=== PATIENT | female | born 1970 | race Caucasian/White ===

== ENCOUNTER 2019-04-09 03:31 | Emergency (ER) | payer OTHER ==
--- NOTE | 2019-04-09 04:15 | XRay Report ---
CHEST 2 VIEWS INDICATION / CLINICAL INFORMATION: DARCY. COMPARISON: None available. FINDINGS: SUPPORT DEVICES: None. HEART / MEDIASTINUM: No significant abnormality. LUNGS / PLEURA: No significant pulmonary or pleural abnormality. No pneumothorax. ADDITIONAL FINDINGS: There is a pectus excavatum deformity. IMPRESSION: 1. No acute findings. Signer Name: Hugo Zarate MD Signed: 04/09/2019 4:11 AM Workstation Name: [id number]
[2019-04-09 04:49] VITALS: BP 124/75
--- NOTE | 2019-04-09 05:02 | Emergency Department Report ---
ED Shortness of Breath HPI - General Chief Complaint: Dyspnea/Respdistress Stated Complaint: ASTHMA Time Seen by Provider: 04/09/19 04:56 Source: patient Mode of arrival: Ambulatory Limitations: No Limitations - History of Present Illness Initial Comments: 48-year-old female presents to ED with cough and shortness of breath. Patient reports history of asthma when she is a child. Patient states over the last month she has been experiencing productive cough, shortness of breath, wheezing, chest pain with cough and inspiration. Patient denies fever. 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 Patient states she was given a prescription of prednisone, antibiotics, allergy medicine, and albuterol last month. Patient states she has a follow-up appointment with her doctor in 2 days. Patient denies leg pain or swelling. MD Complaint: shortness of breath -: month(s) (1) Severity: moderate Consistency: intermittent Improves With: bronchodilators Worsens With: coughing Known History Of: asthma Associated Symptoms: chest pain, pain with inspiration, cough, sputum production - Related Data Previous Rx's Medication Instructions Recorded Last Taken Type Albuterol Sulfate [Proventil Hfa] 2 puff IH Q4HR PRN #1 hfa.aer.ad 04/09/19 Unknown Rx Benzonatate [Tessalon Perles] 100 mg PO Q8HR PRN #20 capsule 04/09/19 Unknown Rx Naproxen [Naprosyn] 500 mg PO BID #20 tablet 04/09/19 Unknown Rx predniSONE [Deltasone] 50 mg PO QDAY #5 tab 04/09/19 Unknown Rx Allergies Allergy/AdvReac Type Severity Reaction Status Date / Time iodine Allergy Anaphylaxis Verified 04/09/19 03:44 Penicillins Allergy Anaphylaxis Verified 04/09/19 03:42 Sulfa (Sulfonamide Allergy Anaphylaxis Verified 04/09/19 03:44 Antibiotics) ED Review of Systems ROS: Stated complaint: ASTHMA Other details as noted in HPI Comment: All other systems reviewed and negative Constitutional: denies: chills, fever Respiratory: cough, shortness of breath, wheezing Cardiovascular: chest pain Musculoskeletal: other (denies leg pain or swelling) ED Past Medical Hx - Past Medical History Previous Medical History?: Yes Hx Hypertension: Yes Hx Asthma: Yes - Surgical History Past Surgical History?: Yes Hx Appendectomy: Yes Additional Surgical History: B/L Hand - Social History Smoking Status: Former Smoker Substance Use Type: None - Medications Home Medications: Home Medications Medication Instructions Recorded Confirmed Last Taken Type Albuterol Sulfate [Proventil Hfa] 2 puff IH Q4HR PRN #1 hfa.aer.ad 04/09/19 Unknown Rx Benzonatate [Tessalon Perles] 100 mg PO Q8HR PRN #20 capsule 04/09/19 Unknown Rx Naproxen [Naprosyn] 500 mg PO BID #20 tablet 04/09/19 Unknown Rx predniSONE [Deltasone] 50 mg PO QDAY #5 tab 04/09/19 Unknown Rx ED Physical Exam - General Limitations: No Limitations General appearance: alert, in no apparent distress - Head Head exam: Present: atraumatic, normocephalic - Eye Eye exam: Present: normal appearance, PERRL, EOMI - ENT ENT exam: Present: mucous membranes moist - Neck Neck exam: Present: normal inspection - Respiratory Respiratory exam: Present: normal lung sounds bilaterally. Absent: respiratory distress, wheezes, rales, rhonchi - Cardiovascular Cardiovascular Exam: Present: regular rate, normal rhythm - GI/Abdominal GI/Abdominal exam: Present: soft. Absent: distended, tenderness - Extremities Exam Extremities exam: Present: normal inspection. Absent: pedal edema, calf tenderness - Neurological Exam Neurological exam: Present: alert, oriented X3 - Psychiatric Psychiatric exam: Present: normal affect, normal mood - Skin Skin exam: Present: warm, dry, intact, normal color ED Course Vital Signs 04/09/19 04/09/19 04/09/19 03:45 04:48 04:49 Temperature 98.2 F 98.2 F Pulse Rate 82 72 Respiratory 20 20 20 Rate Blood Pressure 142/82 Blood Pressure 124/75 [Left] O2 Sat by Pulse 98 98 98 Oximetry ED Medical Decision Making - Radiology Data Radiology results: report reviewed, image reviewed Critical care attestation.: If time is entered above; I have spent that time in minutes in the direct care of this critically ill patient, excluding procedure time. ED Disposition Clinical Impression: Bronchitis Disposition: DC-01 TO HOME OR SELFCARE Is pt being admited?: No Condition: Stable Instructions: Acute Bronchitis (ED) Referrals: PRIMARY CARE, [Primary Care Provider] - 3-5 Days [facility] [place] [Provider Group] - 3-5 Days Time of Disposition: 05:01
== END 2019-04-09 05:30 | disposition home or self-care (01) ==
LOC: ED 03:31
DX: J40 Bronchitis, not specified as acute or chronic (principal); I10 Essential (primary) hypertension; Z87.891 Personal history of nicotine dependence; Z79.899 Other long term (current) drug therapy; Z91.041 Radiographic dye allergy status; Z88.0 Allergy status to penicillin; Z88.1 Allergy status to other antibiotic agents
CPT/HCPCS: 71046

== ENCOUNTER 2020-02-08 21:01 | Emergency (ER) | payer OTHER ==
[2020-02-08 21:17] VITALS: BP 140/81
[2020-02-09] MEDS ORDERED: IPRATROPIUM/ALBUTEROL SULFATE 3 ML AMPUL.NEB IH ONE (00:29)
[2020-02-09] MEDS ORDERED: dexAMETHasone 20 MG/5 ML VIAL IV ONE (00:29)
[2020-02-09] MEDS ORDERED: KETOROLAC 30 MG/1 ML INJ IV ONE (00:30)
--- NOTE | 2020-02-09 00:57 | XRay Report ---
CHEST 1 VIEW INDICATION / CLINICAL INFORMATION: dyspnea. COMPARISON: 04/09/2019 FINDINGS: SUPPORT DEVICES: None. HEART / MEDIASTINUM: No significant abnormality. LUNGS / PLEURA: No significant pulmonary or pleural abnormality. No pneumothorax. ADDITIONAL FINDINGS: No significant additional findings. IMPRESSION: No acute pulmonary or pleural abnormality. No change from 04/09/2019 Signer Name: Charlie Mireles MD FACR Signed: 02/09/2020 12:52 AM Workstation Name: [id number]
[2020-02-09 01:26] LABS: Alanine Aminotransferase 14 units/L (7-56); Albumin 4.5 g/dL (3.9-5); Blood Urea Nitrogen 16 mg/dL (7-17); Calcium 9.5 mg/dL (8.4-10.2); Hemolysis Index 7
[2020-02-09 01:37] LABS: BUN/Creatinine Ratio 23
[2020-02-09 01:45] LABS: Hematocrit 37.1 % (30.3-42.9); Hemoglobin 11.9 gm/dl (10.1-14.3); Mean Corpuscular HGB Conc 32 % (30-34); Mean Corpuscular Volume 76 fl (79-97); Platelet Count 231 K/mm3 (140-440); Red Blood Count 4.88 M/mm3 (3.65-5.03); Red Cell Distribution Width 13.9 % (13.2-15.2)
[2020-02-09 01:58] LABS: Basophils # (Auto) 0.1 K/mm3 (0.0-0.1); Basophils % (Auto) 0.7 % (0.0-1.8); Eosinophils # (Auto) 0.1 K/mm3 (0.0-0.4); Eosinophils % (Auto) 1.2 % (0.0-4.3); Lymphocytes # (Auto) 2.1 K/mm3 (1.2-5.4); Monocytes # (Auto) 0.8 K/mm3 (0.0-0.8); Monocytes % (Auto) 7.9 % (0.0-7.3)
[2020-02-09 05:16] LABS: Bilirubin,Urine NEG (Negative); Blood,Urine SM (Negative); Color,Urine Straw (Yellow); Protein,Urine <15 mg/dL mg/dL (Negative); Urobilinogen,Urine < 2.0 mg/dL (<2.0); WBC,Urine < 1.0 /HPF (0.0-6.0)
--- NOTE | 2020-02-09 06:15 | Emergency Department Report ---
ED General Adult HPI - General Chief complaint: Nausea/Vomiting/Diarrhea Stated complaint: COUGH, AND SHORTNESS OF BREATH Source: patient Mode of arrival: Ambulatory Limitations: No Limitations - History of Present Illness Initial comments: Patient is a 49-year-old female with a history of retention and asthma who presents to the ED with complaint of acute onset persistent dry cough, wheezing, shortness of breath, headache, mid posterior thoracic pain with nausea and vomiting and diarrhea for the last 10 days. Patient states that 2 weeks ago she had a negative COVID-19 test result. Patient states however that her symptoms have been worsening especially in the last 2 days despite using her albuterol inhaler at home. Patient denies dizziness, chest pain, fever, chills, abdominal pain, headache, sore throat, nasal and sinus congestion, change in vision, dysuria, urinary frequency and urgency, hematuria or syncope and palpitations. MD Complaint: dyspnea, headache, back pain; nausea, vomiting and diarrhea -: Sudden, week(s) (2) Location: chest, back Radiation: non-radiation Severity scale (0 -10): 6 Quality: aching, sharp Consistency: constant Improves with: none Worsens with: movement Associated Symptoms: denies other symptoms, cough, headaches, loss of appetite, malaise, nausea/vomiting, shortness of breath. denies: confusion, chest pain, diaphoresis, fever/chills, rash, seizure, syncope, weakness, other Treatments Prior to Arrival: none - Related Data Previous Rx's Medication Instructions Recorded Last Taken Type Albuterol Sulfate [Proventil Hfa] 2 puff IH Q4HR PRN #1 hfa.aer.ad 04/09/19 Unknown Rx Benzonatate [Tessalon Perles] 100 mg PO Q8HR PRN #20 capsule 04/09/19 Unknown Rx Naproxen [Naprosyn] 500 mg PO BID #20 tablet 04/09/19 Unknown Rx predniSONE [Deltasone] 50 mg PO QDAY #5 tab 04/09/19 Unknown Rx Azithromycin [Zithromax Z-CHELY] 250 mg PO DAILY #6 tablet 02/09/20 Unknown Rx Benzonatate [Tessalon Perles] 100 mg PO Q8HR #30 capsule 02/09/20 Unknown Rx Cetirizine HCl [Zyrtec 10mg tab] 10 mg PO DAILY #30 tablet 02/09/20 Unknown Rx Cyclobenzaprine [Flexeril] 10 mg PO TID PRN #21 tablet 02/09/20 Unknown Rx Naproxen 500 mg PO Q12H PRN #30 tablet 02/09/20 Unknown Rx methylPREDNISolone [Medrol 4MG 4 mg PO DAILY #21 tab.ds.pk 02/09/20 Unknown Rx DOSEPAK (21 tabs)] Allergies Allergy/AdvReac Type Severity Reaction Status Date / Time iodine Allergy Anaphylaxis Verified 04/09/19 03:44 Penicillins Allergy Anaphylaxis Verified 04/09/19 03:42 Sulfa (Sulfonamide Allergy Anaphylaxis Verified 04/09/19 03:44 Antibiotics) ED Review of Systems ROS: Stated complaint: COUGH, AND SHORTNESS OF BREATH Other details as noted in HPI Constitutional: denies: chills, fever Eyes: denies: eye pain, eye discharge, vision change ENT: congestion. denies: ear pain, throat pain Respiratory: cough, shortness of breath, wheezing Cardiovascular: denies: chest pain, palpitations Endocrine: no symptoms reported Gastrointestinal: nausea, vomiting, diarrhea. denies: abdominal pain Genitourinary: denies: urgency, dysuria, discharge Musculoskeletal: back pain, arthralgia. denies: joint swelling Skin: denies: rash, lesions Neurological: headache. denies: weakness, paresthesias Psychiatric: denies: anxiety, depression Hematological/Lymphatic: denies: easy bleeding, easy bruising ED Past Medical Hx - Past Medical History Previous Medical History?: Yes Hx Hypertension: Yes Hx Asthma: Yes - Surgical History Past Surgical History?: Yes Hx Appendectomy: Yes Additional Surgical History: B/L Hand - Social History Smoking Status: Former Smoker Substance Use Type: None - Medications Home Medications: Home Medications Medication Instructions Recorded Confirmed Last Taken Type Albuterol Sulfate [Proventil Hfa] 2 puff IH Q4HR PRN #1 hfa.aer.ad 04/09/19 Unknown Rx Benzonatate [Tessalon Perles] 100 mg PO Q8HR PRN #20 capsule 04/09/19 Unknown Rx Naproxen [Naprosyn] 500 mg PO BID #20 tablet 04/09/19 Unknown Rx predniSONE [Deltasone] 50 mg PO QDAY #5 tab 04/09/19 Unknown Rx Azithromycin [Zithromax Z-CHELY] 250 mg PO DAILY #6 tablet 02/09/20 Unknown Rx Benzonatate [Tessalon Perles] 100 mg PO Q8HR #30 capsule 02/09/20 Unknown Rx Cetirizine HCl [Zyrtec 10mg tab] 10 mg PO DAILY #30 tablet 02/09/20 Unknown Rx Cyclobenzaprine [Flexeril] 10 mg PO TID PRN #21 tablet 02/09/20 Unknown Rx Naproxen 500 mg PO Q12H PRN #30 tablet 02/09/20 Unknown Rx methylPREDNISolone [Medrol 4MG 4 mg PO DAILY #21 tab.ds.pk 02/09/20 Unknown Rx DOSEPAK (21 tabs)] ED Physical Exam - General Limitations: No Limitations General appearance: alert, in no apparent distress - Head Head exam: Present: atraumatic, normocephalic, normal inspection - Eye Eye exam: Present: normal appearance, PERRL, EOMI Pupils: Present: normal accommodation - ENT ENT exam: Present: normal exam, normal orophraynx, mucous membranes moist, TM's normal bilaterally, normal external ear exam - Neck Neck exam: Present: normal inspection, full ROM - Respiratory Respiratory exam: Present: wheezes (Mildly diffuse coarse wheezes throughout). Absent: respiratory distress, rales, rhonchi, chest wall tenderness, accessory muscle use, prolonged expiratory - Cardiovascular Cardiovascular Exam: Present: regular rate, normal rhythm, normal heart sounds. Absent: bradycardia, systolic murmur, diastolic murmur, rubs, gallop - GI/Abdominal GI/Abdominal exam: Present: soft, normal bowel sounds. Absent: tenderness, guarding, hyperactive bowel sounds, hypoactive bowel sounds - Extremities Exam Extremities exam: Present: normal inspection, full ROM, normal capillary refill - Back Exam Back exam: Present: normal inspection, full ROM, tenderness (Palpable mid posterior thoracic paraspinal musculoskeletal tenderness), muscle spasm, paraspinal tenderness - Neurological Exam Neurological exam: Present: alert, oriented X3, CN II-XII intact, normal gait, reflexes normal - Psychiatric Psychiatric exam: Present: normal affect, normal mood - Skin Skin exam: Present: warm, dry, intact, normal color. Absent: rash ED Course Vital Signs 02/08/20 21:13 Temperature 98.3 F Pulse Rate 80 Respiratory 18 Rate Blood Pressure 140/81 O2 Sat by Pulse 99 Oximetry ED Medical Decision Making - Lab Data Result diagrams: 02/09/20 00:45 02/09/20 00:45 - Radiology Data Radiology results: report reviewed, image reviewed Findings [facility] [address] [place] [address] XRay Report Signed Patient: NELI BERRY MR# : [id number] : 1970 Acct:[id number] Age/Sex: 49 / F ADM Date: 02/08/20 Loc: ED Attending Dr: Ordering Physician: LORI LOYA Date of Service: 02/09/20 Procedure(s): XR chest 1V ap Accession Number(s): [id number] cc: LORI LOYA Fluoro Time In Minutes: CHEST 1 VIEW INDICATION / CLINICAL INFORMATION: dyspnea. COMPARISON: 04/09/2019 FINDINGS: SUPPORT DEVICES: None. HEART / MEDIASTINUM: No significant abnormality. LUNGS / PLEURA: No significant pulmonary or pleural abnormality. No pneumothorax. ADDITIONAL FINDINGS: No significant additional findings. IMPRESSION: No acute pulmonary or pleural abnormality. No change from 04/09/2019 Signer Name: Charlie Mireles MD FACR Signed: 02/09/2020 12:52 AM Workstation Name: [id number] Transcribed By: MS Dictated By: Charlie Mireles MD Electronically Authenticated By: Charlie Mireles MD Signed Date/Time: 02/09/2051 DD/ TD/TT: - Medical Decision Making This is a 49-year-old female with a history of retention and asthma who presents to the ED with complaint of acute onset persistent dry cough, wheezing, shortness of breath, headache, mid posterior thoracic pain with nausea and vomiting and diarrhea for the last 10 days. Patient states that 2 weeks ago she had a negative COVID-19 test result. Patient states however that her symptoms have been worsening especially in the last 2 days despite using her albuterol inhaler at home. In the ED, patient is alert and oriented x3 and is not in distress. Patient was treated in the ED with DuoNeb, steroids, pain medications. Chest x-ray shows no acute cardiopulmonary abnormalities or pneumonitis. Lab test results were reviewed and are all nonactionable. On reevaluation, patient pain is well controlled medications, and patient felt much better after the treatment. Patient was discharged home on medications and advised to follow-up with her primary care physician in 5 to 7 days for reevaluation or return to the ED immediately if symptoms get worse. - Differential Diagnosis Asthmatic bronchitis; Pneumonia; Muscle spasm; URI; Sinusitis Critical care attestation.: If time is entered above; I have spent that time in minutes in the direct care of this critically ill patient, excluding procedure time. ED Disposition Clinical Impression: Acute bronchitis with asthma, Spasm of thoracic back muscle, Acute bacterial sinusitis Disposition: TO HOME OR SELFCARE Is pt being admited?: No Does the pt Need Aspirin: No Condition: Stable Instructions: Acute Bronchitis (ED), Asthma (ED), Acute Bacterial Rhinosinusitis (ED) Additional Instructions: Todos los resultados de las pruebas de laboratorio y el informe de imgenes son normales. Por lo tanto, tome los medicamentos con alimentos, ike muchos lquidos y cleo un seguimiento con dubois mdico de atencin primaria en 5 a 7 guzman para amy reevaluacin. Regrese al servicio de urgencias de inmediato si los sntomas empeoran. Prescriptions: Cyclobenzaprine [Flexeril] 10 mg PO TID PRN #21 tablet PRN Reason: Muscle Spasm methylPREDNISolone [Medrol 4MG DOSEPAK (21 tabs)] 4 mg PO DAILY #21 tab.ds.pk Naproxen 500 mg PO Q12H PRN #30 tablet PRN Reason: Pain , Severe (7-10) Benzonatate [Tessalon Perles] 100 mg PO Q8HR #30 capsule Azithromycin [Zithromax Z-CHELY] 250 mg PO DAILY #6 tablet Cetirizine HCl [Zyrtec 10mg tab] 10 mg PO DAILY #30 tablet Referrals: [facility] [place] [Outside] - 3-5 Days [facility] [Provider Group] - 3-5 Days Forms: Work/School Release Form(ED) Time of Disposition: 06:21 Print Language: KINYARWANDA
== END 2020-02-09 06:46 | disposition home or self-care (01) ==
LOC: ED 21:01
DX: J45.909 Unspecified asthma, uncomplicated (principal); M62.830 Muscle spasm of back; I10 Essential (primary) hypertension; Z90.49 Acquired absence of other specified parts of digestive tract; Z79.899 Other long term (current) drug therapy; Z88.0 Allergy status to penicillin; Z88.2 Allergy status to sulfonamides; Z88.8 Allergy status to other drugs, medicaments and biological substances
CPT/HCPCS: 36415; 71045; 80053; 81001; 84484; 85025; 85379; 94640; 96374; 96375; 99284; J1100; J1885

== ENCOUNTER 2020-06-14 10:35 | Outpatient (CLI) | payer OTHER ==
--- NOTE | 2020-06-14 12:04 | Fluoroscopy Report ---
BARIUM SWALLOW Indication: DYSPHAGIA. Technique: Single and double contrast barium technique utilized to evaluate the esophagus. FINDINGS: To begin the exam, swallowing was evaluated in the lateral position under direct fluorosco py. Swallowing was normal. No mucosal irregularity, mass, mass effect, or critical stenosis. No hiatal hernia is witnessed. Oc casional episodes of mild gastroesophageal reflux into the distal esophagus was seen during this exam . Occasional tertiary contractions in the distal esophagus were also seen consistent with mild esopha geal spasm. The patient was able to ingest and pass a barium tablet through the esophagus without difficulty. No gross gastric abnormality. IMPRESSION: There is evidence for mild gastroesophageal reflux and mild esophageal spasm. No mucosal lesion or stenosis. Fluoroscopic time: 2.4 minutes Number of fluoroscopic images: 40 Signer Name: Torito Sandhu Jr, MD Signed: 06/14/2020 12:00 PM Workstation Name: [id number]
== END 2020-06-14 10:36 | disposition home or self-care (01) ==
LOC: FLUORO 10:35
PROVIDERS: ATTEND Internal Medicine
DX: K21.9 Gastro-esophageal reflux disease without esophagitis (principal); K22.4 Dyskinesia of esophagus
CPT/HCPCS: 74221

== ENCOUNTER 2020-10-30 14:44 | Emergency (ER) | payer OTHER ==
[2020-10-30 15:27] VITALS: BP 123/76
--- NOTE | 2020-10-30 15:27 | Event Note ---
ED Screening Note Date of service: 10/30/20 Time: 15:25 ED Screening Note: 50-year-old female patient presents emergency department complaint of chest pain, shortness breath, and palpitations after taking doxycycline yesterday. Patient states she was recently prescribed antibiotics for an abscess in her right axilla. She has multiple medication allergies. States she felt as though she was going to pass out earlier today. Tachycardic in triage. General: Awake, appropriately interactive, no acute distress. Neck: Supple. Full range of motion intact. Cardiovascular: Tachycardic. Normal peripheral perfusion. Pulmonary: No respiratory distress. Patient is speaking normally without use of accessory muscles. Skin: No apparent rashes or lesions. Neurological: No facial asymmetry. Speech is clear. Follows commands. Patient is alert and oriented. Musculoskeletal: Moves all four extremities spontaneously with normal range of motion. Psych: Cooperative. Appropriate mood and affect. I have greeted and performed a focused rapid initial assessment of this patient. A comprehensive ED assessment and evaluation of the patient, analysis of all test results, and completion of the medical decision-making process will be conducted by additional ED providers. This initial assessment/diagnostic orders/clinical plan/treatment(s) is/are subject to change based on patients health status, clinical progression and re-assessment. Further treatment and workup at subsequent clinical provider's discretion. Patient/guardian urged not to elope from the ED as their condition may be serious if not clinically assessed and managed.
[2020-10-30 15:53] LABS: Basophils # (Auto) 0.1 K/mm3 (0.0-0.1); Basophils % (Auto) 0.7 % (0.0-1.8); Eosinophils % (Auto) 0.4 % (0.0-4.3); Hematocrit 40.8 % (30.3-42.9); Hemoglobin 12.8 gm/dl (10.1-14.3); Lymphocytes % (Auto) 7.8 % (13.4-35.0); Mean Corpuscular HGB Conc 32 % (30-34); Mean Corpuscular Volume 77 fl (79-97); Monocytes # (Auto) 0.7 K/mm3 (0.0-0.8); Monocytes % (Auto) 5.1 % (0.0-7.3); Platelet Count 304 K/mm3 (140-440); Red Blood Count 5.27 M/mm3 (3.65-5.03); Red Cell Distribution Width 15.9 % (13.2-15.2)
[2020-10-30 16:20] LABS: Alanine Aminotransferase 14 units/L (7-56); Albumin 4.7 g/dL (3.9-5); Blood Urea Nitrogen 11 mg/dL (7-17); Calcium 9.4 mg/dL (8.4-10.2); Hemolysis Index 12
[2020-10-30 16:21] LABS: BUN/Creatinine Ratio 18
--- NOTE | 2020-10-31 17:50 | Electrocardiograph Report ---
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
== END 2020-10-30 19:35 | disposition left against medical advice (07) ==
LOC: ED 14:44
DX: R07.89 Other chest pain (principal); R06.02 Shortness of breath; R00.2 Palpitations; Z53.21 Procedure and treatment not carried out due to patient leaving prior to being seen by health care provider
CPT/HCPCS: 36415; 80053; 83735; 84484; 85025; 93005

== ENCOUNTER 2020-11-23 13:08 | Emergency (ER) | payer OTHER ==
[2020-11-23 17:42] LABS: Bilirubin,Urine NEG (Negative); Blood,Urine NEG (Negative); Color,Urine Yellow (Yellow); Mucus,Urine 1+ /HPF; Protein,Urine <15 mg/dL mg/dL (Negative); Urobilinogen,Urine < 2.0 mg/dL (<2.0); WBC,Urine < 1.0 /HPF (0.0-6.0)
[2020-11-23 18:21] LABS: Basophils # (Auto) 0.1 K/mm3 (0.0-0.1); Basophils % (Auto) 0.9 % (0.0-1.8); Eosinophils # (Auto) 0.1 K/mm3 (0.0-0.4); Eosinophils % (Auto) 1.1 % (0.0-4.3); Hematocrit 40.9 % (30.3-42.9); Hemoglobin 13.1 gm/dl (10.1-14.3); Lymphocytes # (Auto) 1.4 K/mm3 (1.2-5.4); Lymphocytes % (Auto) 15.2 % (13.4-35.0); Mean Corpuscular HGB Conc 32 % (30-34); Mean Corpuscular Volume 80 fl (79-97); Monocytes # (Auto) 0.6 K/mm3 (0.0-0.8); Monocytes % (Auto) 6.7 % (0.0-7.3); Platelet Count 313 K/mm3 (140-440); Red Blood Count 5.12 M/mm3 (3.65-5.03); Red Cell Distribution Width 16.6 % (13.2-15.2)
[2020-11-23 18:43] LABS: Alanine Aminotransferase 11 units/L (7-56); Albumin 4.7 g/dL (3.9-5); Blood Urea Nitrogen 12 mg/dL (7-17); Calcium 8.9 mg/dL (8.4-10.2); Hemolysis Index 55
[2020-11-23 18:45] LABS: BUN/Creatinine Ratio 20
[2020-11-23 20:30] LABS: HCG Qualitative,Urine Negative (Negative)
--- NOTE | 2020-11-23 20:31 | Emergency Department Report ---
ED General Adult HPI - General Chief complaint: Dizziness Stated complaint: NECK PAIN/LT HAND/DIZZY Time Seen by Provider: 11/23/20 19:20 Source: patient Mode of arrival: Ambulatory Limitations: No Limitations - History of Present Illness Initial comments: 50-year-old female presents to ED for medical evaluation. Patient reports 1 week history of headache, dizziness, nausea, vomiting, abdominal pain, diarrhea, rash. Patient denies any fever. Patient works at [employer]. 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 Patient states a couple of the birds have been sick with psittacosis over the st 3 weeks and she has to administer antibiotics to the birds. 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 However, patient states that even though she wears gloves, sometimes she gets bitten when their beaks go through the gloves. -: week(s) (1) Severity scale (0 -10): 1 Consistency: constant Improves with: none Worsens with: none Associated Symptoms: headaches, nausea/vomiting, rash. denies: chest pain, cough, fever/chills, shortness of breath, syncope Treatments Prior to Arrival: none - Related Data Previous Rx's Medication Instructions Recorded Last Taken Type Albuterol Sulfate [Proventil Hfa] 2 puff IH Q4HR PRN #1 hfa.aer.ad 04/09/19 Unknown Rx Benzonatate [Tessalon Perles] 100 mg PO Q8HR PRN #20 capsule 04/09/19 Unknown Rx Naproxen [Naprosyn] 500 mg PO BID #20 tablet 04/09/19 Unknown Rx predniSONE [Deltasone] 50 mg PO QDAY #5 tab 04/09/19 Unknown Rx Azithromycin [Zithromax Z-CHELY] 250 mg PO DAILY #6 tablet 02/09/20 Unknown Rx Benzonatate [Tessalon Perles] 100 mg PO Q8HR #30 capsule 02/09/20 Unknown Rx Cetirizine HCl [Zyrtec 10mg tab] 10 mg PO DAILY #30 tablet 02/09/20 Unknown Rx Cyclobenzaprine [Flexeril] 10 mg PO TID PRN #21 tablet 02/09/20 Unknown Rx Naproxen 500 mg PO Q12H PRN #30 tablet 02/09/20 Unknown Rx methylPREDNISolone [Medrol 4MG 4 mg PO DAILY #21 tab.ds.pk 02/09/20 Unknown Rx DOSEPAK (21 tabs)] Azithromycin [Zithromax TAB] 250 mg PO QDAY 5 Days #6 tablet 11/24/20 Unknown Rx Allergies Allergy/AdvReac Type Severity Reaction Status Date / Time iodine Allergy Anaphylaxis Verified 11/23/20 15:14 Penicillins Allergy Anaphylaxis Verified 11/23/20 15:14 Sulfa (Sulfonamide Allergy Anaphylaxis Verified 11/23/20 15:14 Antibiotics) iodoquinol [From Yodoxin] AdvReac Unknown Verified 11/23/20 15:14 tetracycline AdvReac Unknown Verified 11/23/20 15:14 ED Review of Systems ROS: Stated complaint: NECK PAIN/LT HAND/DIZZY Other details as noted in HPI Comment: All other systems reviewed and negative Constitutional: denies: chills, fever Respiratory: denies: cough, shortness of breath Cardiovascular: denies: chest pain Gastrointestinal: nausea, vomiting, diarrhea Skin: rash ED Past Medical Hx - Past Medical History Hx Hypertension: Yes Hx Asthma: Yes - Surgical History Hx Appendectomy: Yes Additional Surgical History: B/L Hand - Social History Smoking Status: Never Smoker Substance Use Type: None - Medications Home Medications: Home Medications Medication Instructions Recorded Confirmed Last Taken Type Albuterol Sulfate [Proventil Hfa] 2 puff IH Q4HR PRN #1 hfa.aer.ad 04/09/19 Unknown Rx Benzonatate [Tessalon Perles] 100 mg PO Q8HR PRN #20 capsule 04/09/19 Unknown Rx Naproxen [Naprosyn] 500 mg PO BID #20 tablet 04/09/19 Unknown Rx predniSONE [Deltasone] 50 mg PO QDAY #5 tab 04/09/19 Unknown Rx Azithromycin [Zithromax Z-CHELY] 250 mg PO DAILY #6 tablet 02/09/20 Unknown Rx Benzonatate [Tessalon Perles] 100 mg PO Q8HR #30 capsule 02/09/20 Unknown Rx Cetirizine HCl [Zyrtec 10mg tab] 10 mg PO DAILY #30 tablet 02/09/20 Unknown Rx Cyclobenzaprine [Flexeril] 10 mg PO TID PRN #21 tablet 02/09/20 Unknown Rx Naproxen 500 mg PO Q12H PRN #30 tablet 02/09/20 Unknown Rx methylPREDNISolone [Medrol 4MG 4 mg PO DAILY #21 tab.ds.pk 02/09/20 Unknown Rx DOSEPAK (21 tabs)] Azithromycin [Zithromax TAB] 250 mg PO QDAY 5 Days #6 tablet 11/24/20 Unknown Rx ED Physical Exam - General Limitations: No Limitations General appearance: alert, in no apparent distress - Head Head exam: Present: atraumatic, normocephalic - Eye Eye exam: Present: normal appearance, EOMI - ENT ENT exam: Present: mucous membranes moist - Neck Neck exam: Present: normal inspection - Respiratory Respiratory exam: Present: normal lung sounds bilaterally. Absent: respiratory distress - Cardiovascular Cardiovascular Exam: Present: regular rate, normal rhythm - GI/Abdominal GI/Abdominal exam: Present: soft. Absent: distended, tenderness - Extremities Exam Extremities exam: Present: normal inspection - Neurological Exam Neurological exam: Present: alert, oriented X3, CN II-XII intact. Absent: motor sensory deficit - Psychiatric Psychiatric exam: Present: normal affect, normal mood - Skin Skin exam: Present: rash (a few maculopapular lesions to bilateral upper extremities) ED Course Vital Signs 11/23/20 11/23/20 11/23/20 19:27 20:15 22:06 Temperature 97.8 F Pulse Rate 81 76 Respiratory 18 18 Rate Blood Pressure 143/63 136/74 [Left] O2 Sat by Pulse 100 100 Oximetry ED Medical Decision Making - Lab Data Result diagrams: 11/23/20 17:59 11/23/20 17:59 - Radiology Data Radiology results: report reviewed, image reviewed - Medical Decision Making 50-year-old female presents to ED with a constellation of symptoms x1 week. 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 She reports bites from the birds on her hands. Patient is nontoxic appearing. Vital signs are normal. She is afebrile. He is in no respiratory distress. Chest x-ray is normal. CT head and abdomen pelvis are all unremarkable. We will empirically treat for psittacosis. Patient has allergy to doxycycline, the first-line treatment, so patient will be given prescription for azithromycin. Outpatient follow-up advised. Information given for infectious disease physician. Return precautions given. - Differential Diagnosis Psittacosis Critical care attestation.: If time is entered above; I have spent that time in minutes in the direct care of this critically ill patient, excluding procedure time. ED Disposition Clinical Impression: Bitten by other psittacines, initial encounter, Dizziness, Abdominal pain Disposition: TO HOME OR SELFCARE Is pt being admited?: No Condition: Stable Prescriptions: Azithromycin [Zithromax TAB] 250 mg PO QDAY 5 Days #6 tablet Referrals: [facility] [Provider Group] - 3-5 Days BRITTON LOPEZ MD [Staff Physician] - 3-5 Days [facility], [Primary Care Provider] - 3-5 Days
--- NOTE | 2020-11-23 20:44 | XRay Report ---
CHEST 2 VIEWS INDICATION / CLINICAL INFORMATION: weakness. COMPARISON: 02/09/2020 FINDINGS: SUPPORT DEVICES: None. HEART / MEDIASTINUM: No significant abnormality. LUNGS / PLEURA: No significant pulmonary or pleural abnormality. No pneumothorax. ADDITIONAL FINDINGS: No significant additional findings. IMPRESSION: 1. No acute findings. Signer Name: Brayden Jerez MD Signed: 11/23/2020 8:39 PM Workstation Name: [id number]
--- NOTE | 2020-11-23 21:34 | Cat Scan Report ---
CT HEAD WITHOUT CONTRAST INDICATION / CLINICAL INFORMATION: dizziness. TECHNIQUE: All CT scans at this location are performed using CT dose reduction for ALARA by means of automated e xposure control. COMPARISON: None available. FINDINGS: No acute intracranial hemorrhage. Ventricles are normal in size without midline shift or mass effect. No extra-axial fluid collection is seen. ADDITIONAL FINDINGS: None. IMPRESSION: 1. No acute intracranial abnormality. Signer Name: Brayden Jerez MD Signed: 11/23/2020 9:29 PM Workstation Name: [id number]
--- NOTE | 2020-11-23 23:58 | Cat Scan Report ---
CT ABDOMEN PELVIS WITHOUT CONTRAST INDICATION / CLINICAL INFORMATION: LLQ pain. TECHNIQUE: Axial CT images were obtained through the abdomen and pelvis without IV contrast. All CT scans at [facility] location are performed using CT dose reduction for ALARA by means of automated exposure control. COMPARISON: None available. FINDINGS: LOWER CHEST: No significant abnormality. LIVER: No significant abnormality. GALLBLADDER: No significant abnormality. BILE DUCTS: No significant abnormality. PANCREAS: No significant abnormality. SPLEEN: No significant abnormality. ADRENALS: No significant abnormality. RIGHT KIDNEY and URETER: No significant abnormality. LEFT KIDNEY and URETER: No significant abnormality. STOMACH and SMALL BOWEL: No significant abnormality. COLON: No significant abnormality. APPENDIX: R not identified PERITONEUM: No free fluid. No free air. No fluid collection. LYMPH NODES: No significant adenopathy. AORTA and ARTERIES: No significant abnormality. IVC and VEINS: No significant abnormality. URINARY BLADDER: No significant abnormality. REPRODUCTIVE ORGANS: No significant abnormality ADDITIONAL FINDINGS: None. SKELETAL SYSTEM: No significant abnormality. IMPRESSION: 1. No significant abnormality. Signer Name: Bogdan King MD Signed: 11/23/2020 11:54 PM Workstation Name: [id number]
[2020-11-24 00:56] VITALS: BP 129/73
--- NOTE | 2020-11-25 21:36 | Electrocardiograph Report ---
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
== END 2020-11-24 00:56 | disposition home or self-care (01) ==
LOC: ED 13:08
DX: S61.452A Open bite of left hand, initial encounter (principal); S61.451A Open bite of right hand, initial encounter; R42 Dizziness and giddiness; R10.9 Unspecified abdominal pain; I10 Essential (primary) hypertension; J45.909 Unspecified asthma, uncomplicated; Z90.49 Acquired absence of other specified parts of digestive tract; Z98.890 Other specified postprocedural states; Z79.899 Other long term (current) drug therapy; Z88.0 Allergy status to penicillin; Z88.2 Allergy status to sulfonamides; Z88.8 Allergy status to other drugs, medicaments and biological substances; W61 Contact with birds (domestic) (wild); Y93.89 Activity, other specified; Y92.89 Other specified places as the place of occurrence of the external cause; Y99.8 Other external cause status
CPT/HCPCS: 36415; 70450; 71046; 74176; 80053; 81001; 81025; 83690; 85025; 93005

== ENCOUNTER 2021-01-09 02:34 | Observation (INO) | payer OTHER ==
--- NOTE | 2021-01-09 02:57 | Emergency Department Report ---
ED Chest Pain HPI - General Chief Complaint: Chest Pain Stated Complaint: CHEST PAIN PUI?: No Time Seen by Provider: 01/09/21 02:37 Source: patient, EMS Mode of arrival: Stretcher Limitations: No Limitations - History of Present Illness Initial Comments: Patient is a 50-year-old female that presents emergency with complaints of chest pain, shortness of breath, anxiety and palpitations. Patient states that the symptoms started approximately an hour ago. Patient states she called EMS because she was scared. Patient brought to the emergency room via EMS. Report received from EMS. EMS states they gave the patient aspirin and nitro. Patient states the chest pain is in her left chest. Patient states a stabbing sensation . Patient also complains of shortness of breath. Patient states that her shortness of breath and chest pain are better with rest and worse with exertion. Patient states her chest pain was also better with nitro. Patient denies fever and chills. Patient states the chest pain made her anxious. Patient states he also had palpitations. Patient states she has a history of hypertension and A. fib and hyperlipidemia. 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 Patient denies recent travel. Patient denies recent international travel. Patient denies exposure to the novel coronavirus. Patient denies sick contacts. Patient denies fever and chills. Patient denies cough. Patient denies diarrh ea. Patient denies coming in contact with anybody with symptoms of the novel coronavirus. Complaint: chest pain -: Sudden Onset: during rest Pain Location: left chest Pain Radiation: none Severity: severe Severity scale (0 -10): 10 Quality: sharp Consistency: constant Improves With: rest Worsens With: exertion, inspiration re: dyspnea, sense of impending doom. denies: nausea, vomting, diaphoresis Other Symptoms: palpitations. denies: cough, fever, syncope, rash, acid taste in mouth, leg swelling, burping Treatments Prior to Arrival: aspirin, nitroglycerin Aspirin use within the Past 7 Days: (1) Yes - Related Data On Oral Contraceptives: No Previous Rx's Medication Instructions Recorded Last Taken Type Albuterol Sulfate [Proventil Hfa] 2 puff IH Q4HR PRN #1 hfa.aer.ad 04/09/19 Unknown Rx Benzonatate [Tessalon Perles] 100 mg PO Q8HR PRN #20 capsule 04/09/19 Unknown Rx Naproxen [Naprosyn] 500 mg PO BID #20 tablet 04/09/19 Unknown Rx predniSONE [Deltasone] 50 mg PO QDAY #5 tab 04/09/19 Unknown Rx Azithromycin [Zithromax Z-CHELY] 250 mg PO DAILY #6 tablet 02/09/20 Unknown Rx Benzonatate [Tessalon Perles] 100 mg PO Q8HR #30 capsule 02/09/20 Unknown Rx Cetirizine HCl [Zyrtec 10mg tab] 10 mg PO DAILY #30 tablet 02/09/20 Unknown Rx Cyclobenzaprine [Flexeril] 10 mg PO TID PRN #21 tablet 02/09/20 Unknown Rx Naproxen 500 mg PO Q12H PRN #30 tablet 02/09/20 Unknown Rx methylPREDNISolone [Medrol 4MG 4 mg PO DAILY #21 tab.ds.pk 02/09/20 Unknown Rx DOSEPAK (21 tabs)] Azithromycin [Zithromax TAB] 250 mg PO QDAY 5 Days #6 tablet 11/24/20 Unknown Rx Allergies Allergy/AdvReac Type Severity Reaction Status Date / Time iodine Allergy Anaphylaxis Verified 11/23/20 15:14 Penicillins Allergy Anaphylaxis Verified 11/23/20 15:14 Sulfa (Sulfonamide Allergy Anaphylaxis Verified 11/23/20 15:14 Antibiotics) iodoquinol [From Yodoxin] AdvReac Unknown Verified 11/23/20 15:14 tetracycline AdvReac Unknown Verified 11/23/20 15:14 Heart Score - HEART Score History: Moderately suspicious EKG: Non-specific Age: 45-65 Risk factors: 1-2 risk factors Troponin: < normal limit HEART Score: 4 - EKG Read Time Time EKG Completed: 02:47 EKG Read Time: 02:49 ED Review of Systems ROS: Stated complaint: CHEST PAIN Other details as noted in HPI Constitutional: denies: chills, fever Eyes: denies: eye pain, eye discharge, vision change ENT: denies: ear pain, throat pain Respiratory: shortness of breath. denies: cough, wheezing Cardiovascular: as per HPI, chest pain, palpitations Endocrine: no symptoms reported Gastrointestinal: denies: abdominal pain, nausea, diarrhea Genitourinary: denies: urgency, dysuria, discharge Musculoskeletal: denies: back pain, joint swelling, arthralgia Skin: denies: rash, lesions Neurological: denies: headache, weakness, paresthesias Psychiatric: anxiety. denies: depression Hematological/Lymphatic: denies: easy bleeding, easy bruising ED Past Medical Hx - Past Medical History Previous Medical History?: Yes Hx Hypertension: Yes Hx Asthma: Yes Additional medical history: Atrial fib and hyperlipidemia - Surgical History Past Surgical History?: Yes Hx Appendectomy: Yes Additional Surgical History: B/L Hand - Family History Family history: no significant - Social History Smoking Status: Never Smoker Substance Use Type: None - Medications Home Medications: Home Medications Medication Instructions Recorded Confirmed Last Taken Type Albuterol Sulfate [Proventil Hfa] 2 puff IH Q4HR PRN #1 hfa.aer.ad 04/09/19 Unknown Rx Benzonatate [Tessalon Perles] 100 mg PO Q8HR PRN #20 capsule 04/09/19 Unknown Rx Naproxen [Naprosyn] 500 mg PO BID #20 tablet 04/09/19 Unknown Rx predniSONE [Deltasone] 50 mg PO QDAY #5 tab 04/09/19 Unknown Rx Azithromycin [Zithromax Z-CHELY] 250 mg PO DAILY #6 tablet 02/09/20 Unknown Rx Benzonatate [Tessalon Perles] 100 mg PO Q8HR #30 capsule 02/09/20 Unknown Rx Cetirizine HCl [Zyrtec 10mg tab] 10 mg PO DAILY #30 tablet 02/09/20 Unknown Rx Cyclobenzaprine [Flexeril] 10 mg PO TID PRN #21 tablet 02/09/20 Unknown Rx Naproxen 500 mg PO Q12H PRN #30 tablet 02/09/20 Unknown Rx methylPREDNISolone [Medrol 4MG 4 mg PO DAILY #21 tab.ds.pk 02/09/20 Unknown Rx DOSEPAK (21 tabs)] Azithromycin [Zithromax TAB] 250 mg PO QDAY 5 Days #6 tablet 11/24/20 Unknown Rx ED Physical Exam - General Limitations: No Limitations General appearance: alert, in no apparent distress - Head Head exam: Present: atraumatic, normocephalic - Eye Eye exam: Present: normal appearance - ENT ENT exam: Present: mucous membranes moist - Neck Neck exam: Present: normal inspection - Respiratory Respiratory exam: Present: normal lung sounds bilaterally. Absent: respiratory distress, wheezes, rales, rhonchi, chest wall tenderness - Cardiovascular Cardiovascular Exam: Present: regular rate, normal rhythm. Absent: systolic murmur, diastolic murmur, rubs, gallop - GI/Abdominal GI/Abdominal exam: Present: soft, normal bowel sounds - Extremities Exam Extremities exam: Present: normal inspection - Back Exam Back exam: Present: normal inspection - Neurological Exam Neurological exam: Present: alert, oriented X3 - Psychiatric Psychiatric exam: Present: normal affect, normal mood - Skin Skin exam: Present: warm, dry, intact, normal color. Absent: rash ED Course Vital Signs 01/09/21 01/09/21 01/09/21 02:35 02:44 03:00 Temperature 98.7 F Pulse Rate 97 H 96 H Respiratory 18 20 Rate Blood Pressure 148/77 148/77 148/77 O2 Sat by Pulse 100 Oximetry 01/09/21 01/09/21 03:30 04:00 Temperature Pulse Rate 116 H 88 Respiratory 13 21 Rate Blood Pressure 144/74 141/58 O2 Sat by Pulse 100 98 Oximetry - Reevaluation(s) Reevaluation #1: I discussed all results with patient. I discussed plan of care with patient. Patient agrees with plan of care and admission. Patient to be admitted to the hospitalist service. 01/09/21 04:52 - Consultations Consultation #1: Hospitalist consulted for admission. Hospitalist to admit patient. 01/09/21 04:52 LENO score - Leno Score Age > 65: (0) No Aspirin use within the Past 7 Days: (1) Yes 3 or more CAD Risk Factors: (0) No 2 or more Angina events in past 24 hrs: (0) No Known CAD with more than 50% Stenosis: (0) No Elevated Cardiac Markers: (0) No ST Deviation Greater than 0.5mm: (0) No LENO Score: 1 ED Medical Decision Making - Lab Data Result diagrams: 01/09/21 03:34 01/09/21 03:34 - EKG Data -: EKG Interpreted by Me EKG shows normal: sinus rhythm, axis, intervals, QRS complexes, ST-T waves Rate: normal - Radiology Data Radiology results: report reviewed, image reviewed interpreted by me: Chest x-ray: No pneumonia, no pneumothorax, no foreign body, no osseous findings, no acute findings . XR chest 1V ap INDICATION / CLINICAL INFORMATION: Chest Pain. COMPARISON: 11/23/2020. FINDINGS: SUPPORT DEVICES: None. HEART /PULMONARY VASCULATURE: No significant abnormality. LUNGS / PLEURA: No significant pulmonary or pleural abnormality. No pneumothorax. ADDITIONAL FINDINGS: No significant additional findings. IMPRESSION: 1. No acute findings. - Medical Decision Making Patient is a 50-year-old female that presents emergency room with complaints of chest pain or shortness of breath. Patient also states that the chest pain made her feel anxious. Patient also had a sense of impending doom. Patient brought in by EMS. Report received from EMS. Patient was given aspirin and nitro in route and her chest pain improved. Patient's chest pain was nonreproducible. Patient has a history of hypertension, hyperlipidemia and A. fib. Patient had an EKG which was nonspecific and showed no ST changes. Patient had a chest x- ray which shows no acute findings. I personally reviewed the chest x-ray and EKG. Patient had labs done which were essentially unremarkable. Patient's initial troponin was negative. Patient given morphine in the ER. Patient's chest pain improved. Based on the patient's clinical scenario and the fact that the patient required morphine and nitro order to improve the chest pain, the patient admitted to the hospitalist service. Patient admitted to the hospital service for further evaluation treatment and rule out ACS. Critical care time documented due to the multiple reassessments, prolonged time at the bedside, interpretation of diagnostics and labs. - Differential Diagnosis Chest pain, ACS, shortness of breath, Critical Care Time: Yes Critical care time in (mins) excluding proc time.: 35 Critical care attestation.: If time is entered above; I have spent that time in minutes in the direct care of this critically ill patient, excluding procedure time. Critical Care Time: 35 minutes ED Disposition Clinical Impression: Chest pain Qualifiers: Chest pain type: unspecified Qualified Code(s): R07.9 - Chest pain, unspecified Disposition: DC-09 OP ADMIT IP TO THIS HOSP Is pt being admited?: Yes Does the pt Need Aspirin: No Condition: Critical Time of Disposition: 04:56
[2021-01-09] MEDS ORDERED: ONDANSETRON 4 MG/2 ML INJ IV ONE (03:15)
[2021-01-09] MEDS ORDERED: MORPHINE 2 MG/1 ML INJ IV ONE (03:15)
[2021-01-09 03:48] LABS: Basophils # (Auto) 0.1 K/mm3 (0.0-0.1); Basophils % (Auto) 0.7 % (0.0-1.8); Eosinophils # (Auto) 0.1 K/mm3 (0.0-0.4); Eosinophils % (Auto) 0.7 % (0.0-4.3); Hemoglobin 12.2 gm/dl (10.1-14.3); Lymphocytes # (Auto) 1.1 K/mm3 (1.2-5.4); Lymphocytes % (Auto) 8.4 % (13.4-35.0); Mean Corpuscular HGB Conc 33 % (30-34); Mean Corpuscular Volume 78 fl (79-97); Monocytes # (Auto) 0.9 K/mm3 (0.0-0.8); Monocytes % (Auto) 7.1 % (0.0-7.3); Platelet Count 294 K/mm3 (140-440); Red Blood Count 4.74 M/mm3 (3.65-5.03); Red Cell Distribution Width 14.7 % (13.2-15.2)
--- NOTE | 2021-01-09 03:53 | XRay Report ---
. XR chest 1V ap INDICATION / CLINICAL INFORMATION: Chest Pain. COMPARISON: 11/23/2020. FINDINGS: SUPPORT DEVICES: None. HEART /PULMONARY VASCULATURE: No significant abnormality. LUNGS / PLEURA: No significant pulmonary or pleural abnormality. No pneumothorax. ADDITIONAL FINDINGS: No significant additional findings. IMPRESSION: 1. No acute findings. Signer Name: Reji Ray MD Signed: 01/09/2021 3:48 AM Workstation Name: [id number]
[2021-01-09 03:55] LABS: INR 0.98 (0.87-1.13)
[2021-01-09 03:56] LABS: Partial Thromboplastin Time 24.9 Sec. (24.2-36.6)
[2021-01-09 04:11] LABS: Alanine Aminotransferase 15 units/L (7-56); Albumin 4.6 g/dL (3.9-5); Blood Urea Nitrogen 18 mg/dL (7-17); Calcium 9.7 mg/dL (8.4-10.2); Hemolysis Index 4
[2021-01-09 04:12] LABS: BUN/Creatinine Ratio 26
[2021-01-09] MEDS ORDERED: traMADol 50 MG TAB PO PRN (06:04)
[2021-01-09] MEDS ORDERED: MORPHINE 4 MG/1 ML INJ IV PRN (06:04)
[2021-01-09] MEDS ORDERED: NITROGLYCERIN 0.4 MG TAB SUBL SL PRN (06:04)
[2021-01-09] MEDS ORDERED: ACETAMINOPHEN 325 MG TAB PO PRN (06:04)
--- NOTE | 2021-01-09 06:13 | History and Physical Report ---
History of Present Illness Date of examination: 01/09/21 Date of admission: 01/09/21 04:57 Chief complaint: Chest pain History of present illness: 50-year-old female with past medical history of hypertension, asthma, atrial fibrillation and hyperlipidemia was brought to the emergency room because of chest pain, shortness of breath, anxiety and palpitations. Patient states that the symptoms started approximately an hour ago. Patient states she called EMS because she was scared. EMS states they gave the patient aspirin and nitro. Patient states the chest pain is in her left chest. Patient states a stabbing sensation. Patient also complains of shortness of breath. Patient states that her shortness of breath and chest pain are better with rest and worse with exertion. Patient states her chest pain was also better with nitro. Patient denies fever and chills. Patient states the chest pain made her anxious. Patient states he also had palpitations. Patient states she sees a physician liaison. In the emergency room initial cardiac enzyme is 0.010 Past History Past Medical History: atrial fib, hypertension, hyperlipidemia, other (Asthma) Medications and Allergies Allergies Allergy/AdvReac Type Severity Reaction Status Date / Time iodine Allergy Anaphylaxis Verified 11/23/20 15:14 Penicillins Allergy Anaphylaxis Verified 11/23/20 15:14 Sulfa (Sulfonamide Allergy Anaphylaxis Verified 11/23/20 15:14 Antibiotics) iodoquinol [From Yodoxin] AdvReac Unknown Verified 11/23/20 15:14 tetracycline AdvReac Unknown Verified 11/23/20 15:14 Home Medications Medication Instructions Recorded Confirmed Last Taken Type Pantoprazole [Protonix] 40 mg PO QDAY 01/09/21 01/09/21 Unknown History Ramipril 10 mg PO QDAY 01/09/21 01/09/21 Unknown History Review of Systems Cardiovascular: chest pain, shortness of breath Respiratory: shortness of breath Exam - Constitutional Vitals: Temp Pulse Resp BP Pulse Ox 98.7 F 87 17 120/73 100 01/09/21 02:35 01/09/21 06:00 01/09/21 06:00 01/09/21 06:00 01/09/21 06:00 General appearance: Present: no acute distress, well-nourished - EENT Eyes: Present: PERRL ENT: hearing intact, clear oral mucosa - Neck Neck: Present: supple, normal ROM - Respiratory Respiratory effort: normal Respiratory: bilateral: diminished - Cardiovascular Heart Sounds: Present: S1 & S2. Absent: rub, click - Extremities Extremities: pulses symmetrical, No edema Peripheral Pulses: within normal limits - Abdominal General gastrointestinal: Present: soft, non-tender, non-distended, normal bowel sounds Female genitourinary: Present: normal - Integumentary Integumentary: Present: clear, warm, dry - Musculoskeletal Musculoskeletal: gait normal, strength equal bilaterally - Psychiatric Psychiatric: appropriate mood/affect, intact judgment & insight - Neurologic Neurologic: CNII-XII intact, moves all extremities HEART Score - HEART Score EKG: Non-specific Age: 45-65 Risk factors: 1-2 risk factors Troponin: Troponin T < 0.010 ng/mL (0.00-0.029) 01/09/21 03:34 Troponin: < normal limit Results - Labs CBC & Chem 7: 01/09/21 03:34 01/09/21 03:34 Labs: Laboratory Last Values WBC 13.2 K/mm3 (4.5-11.0) H 01/09/21 03:34 RBC 4.74 M/mm3 (3.65-5.03) 01/09/21 03:34 Hgb 12.2 gm/dl (10.1-14.3) 01/09/21 03:34 Hct 37.0 % (30.3-42.9) 01/09/21 03:34 MCV 78 fl (79-97) L 01/09/21 03:34 MCH 26 pg (28-32) L 01/09/21 03:34 MCHC 33 % (30-34) 01/09/21 03:34 RDW 14.7 % (13.2-15.2) 01/09/21 03:34 Plt Count 294 K/mm3 (140-440) 01/09/21 03:34 Lymph % (Auto) 8.4 % (13.4-35.0) L 01/09/21 03:34 [place] % (Auto) 7.1 % (0.0-7.3) 01/09/21 03:34 Eos % (Auto) 0.7 % (0.0-4.3) 01/09/21 03:34 Baso % (Auto) 0.7 % (0.0-1.8) 01/09/21 03:34 Lymph # (Auto) 1.1 K/mm3 (1.2-5.4) L 01/09/21 03:34 [place] # (Auto) 0.9 K/mm3 (0.0-0.8) H 01/09/21 03:34 Eos # (Auto) 0.1 K/mm3 (0.0-0.4) 01/09/21 03:34 Baso # (Auto) 0.1 K/mm3 (0.0-0.1) 01/09/21 03:34 Seg Neutrophils % 83.1 % (40.0-70.0) H 01/09/21 03:34 Seg Neutrophils # 11.0 K/mm3 (1.8-7.7) H 01/09/21 03:34 PT 13.5 Sec. (12.2-14.9) 01/09/21 03:34 INR 0.98 (0.87-1.13) 01/09/21 03:34 APTT 24.9 Sec. (24.2-36.6) 01/09/21 03:34 Sodium 138 mmol/L (137-145) 01/09/21 03:34 Potassium 3.7 mmol/L (3.6-5.0) 01/09/21 03:34 Chloride 101.4 mmol/L (98-107) 01/09/21 03:34 Carbon Dioxide 25 mmol/L (22-30) 01/09/21 03:34 Anion Gap 15 mmol/L 01/09/21 03:34 BUN 18 mg/dL (7-17) H 01/09/21 03:34 Creatinine 0.7 mg/dL (0.6-1.2) 01/09/21 03:34 Estimated GFR > 60 ml/min 01/09/21 03:34 BUN/Creatinine Ratio 26 % 01/09/21 03:34 Glucose 118 mg/dL (65-100) H 01/09/21 03:34 Calcium 9.7 mg/dL (8.4-10.2) 01/09/21 03:34 Total Bilirubin 0.30 mg/dL (0.1-1.2) 01/09/21 03:34 AST 20 units/L (5-40) 01/09/21 03:34 ALT 15 units/L (7-56) 01/09/21 03:34 Alkaline Phosphatase 83 units/L (35-129) 01/09/21 03:34 Troponin T < 0.010 ng/mL (0.00-0.029) 01/09/21 03:34 Total Protein 6.9 g/dL (6.3-8.2) 01/09/21 03:34 Albumin 4.6 g/dL (3.9-5) 01/09/21 03:34 Albumin/Globulin Ratio 2.0 % 01/09/21 03:34 - Imaging and Cardiology Chest x-ray: report reviewed Assessment and Plan VTE prophylaxis?: Chemical Plan of care discussed with patient/family: Yes - Patient Problems (1) Acute coronary syndrome Current Visit: Yes Status: Acute Plan to address problem: Admit the patient to the medical telemetry. Aspirin 325 mg p.o. daily. Lipitor 40 mg p.o. daily. Nitroglycerin as needed. Serial cardiac enzyme. We will do a Lexiscan. Consult cardiology if needed (2) Hypertension Current Visit: Yes Status: Acute Plan to address problem: Lisinopril 20 mg p.o. daily. We will monitor the blood pressure closely (3) Hyperlipidemia Current Visit: Yes Status: Acute Plan to address problem: Lipitor 40 mg p.o. daily. We will repeat the repeat lipid panel. (4) DVT prophylaxis Current Visit: Yes Status: Acute Plan to address problem: Heparin 5000 units subcu every 8 hours for DVT prophylaxis. Protonix 40 mg p.o. daily for GI prophylaxis. Patient is a full code
[2021-01-09] MEDS ORDERED: REGADENOSON 0.4 MG/5 ML INJ IV ONE ×2 (07:11→07:15)
[2021-01-09 09:49] LABS: Basophils # (Auto) 0.1 K/mm3 (0.0-0.1); Basophils % (Auto) 1.2 % (0.0-1.8); Blood Urea Nitrogen 14 mg/dL (7-17); Calcium 9.7 mg/dL (8.4-10.2); Eosinophils # (Auto) 0.1 K/mm3 (0.0-0.4); Eosinophils % (Auto) 0.4 % (0.0-4.3); Hematocrit 36.3 % (30.3-42.9); Hemoglobin 11.7 gm/dl (10.1-14.3); Hemolysis Index 3; Lymphocytes # (Auto) 1.5 K/mm3 (1.2-5.4); Lymphocytes % (Auto) 12.6 % (13.4-35.0); Mean Corpuscular HGB Conc 32 % (30-34); Mean Corpuscular Volume 77 fl (79-97); Monocytes # (Auto) 0.8 K/mm3 (0.0-0.8); Platelet Count 315 K/mm3 (140-440); Red Blood Count 4.71 M/mm3 (3.65-5.03); Red Cell Distribution Width 15.2 % (13.2-15.2)
[2021-01-09 09:50] LABS: BUN/Creatinine Ratio 23
[2021-01-09] MEDS: LISINOPRIL 20 MG TAB PO SCH (09:51)
[2021-01-09] MEDS: PANTOPRAZOLE 40 MG TAB PO SCH (09:55)
[2021-01-09] MEDS ORDERED: PANTOPRAZOLE 40 MG TAB PO SCH (10:00)
--- NOTE | 2021-01-09 10:52 | Electrocardiograph Report ---
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 Electronically Signed On 01-09-2021 10:52:24 EDT by Alcides Mcneil
--- NOTE | 2021-01-09 12:39 | Event Note ---
Date: 01/09/21 Patient was admitted earlier this morning for the management of chest pain. Patient states she has been followed with Dr. Lal for A. fib. Patient is not on anticoagulation. Patient is still complaining chest pain and cardiology consulted. Continue management as outlined in H&P.
--- NOTE | 2021-01-09 13:49 | Consultation ---
History of Present Illness Consult date: 01/09/21 Consult reason: chest pain History of present illness: 50-year-old woman who is a poor historian due to language barrier, history of paroxysmal atrial fibrillation and outpatient management by her seismology technical officer Dr. Lal. Presents to the hospital with intermittent brief palpitations. She also reports a nonexertional, stabbing type pain on the left chest. In the emergency room, her ECG was a mild sinus tachycardia 107, otherwise normal ECG. Serial troponin levels x2 were normal. Chest x-ray showed mild enlargement of the left atrial silhouette, but otherwise normal cardiac silhouette and clear lungs. Patient is currently symptom-free still in the emergency room, in a stable sinus rhythm with stable blood pressure. She had a thallium stress test 8 months ago in the outpatient setting that was normal. Past History Past Medical History: atrial fib, hypertension, hyperlipidemia, other (Asthma) Medications and Allergies Allergies Allergy/AdvReac Type Severity Reaction Status Date / Time iodine Allergy Anaphylaxis Verified 11/23/20 15:14 Penicillins Allergy Anaphylaxis Verified 11/23/20 15:14 Sulfa (Sulfonamide Allergy Anaphylaxis Verified 11/23/20 15:14 Antibiotics) iodoquinol [From Yodoxin] AdvReac Unknown Verified 11/23/20 15:14 tetracycline AdvReac Unknown Verified 11/23/20 15:14 Home Medications Medication Instructions Recorded Confirmed Last Taken Type Dexlansoprazole [Dexilant] 60 mg PO BID 01/09/21 01/09/21 Unknown History Pantoprazole [Protonix] 40 mg PO QDAY 01/09/21 01/09/21 Unknown History Ramipril 10 mg PO QDAY 01/09/21 01/09/21 Unknown History Active Meds: Active Medications Acetaminophen (Acetaminophen 325 Mg Tab) 650 mg PO Q6H PRN PRN Reason: Pain, Mild (1-3) Aspirin (Aspirin Ec 325 Mg Tab) 325 mg PO QDAY ELSA Atorvastatin Calcium (Atorvastatin 40 Mg Tab) 40 mg PO QHS ELSA Heparin Sodium (Porcine) (Heparin 5,000 Unit/1 Ml Vial) 5,000 unit SUB-Q Q8HR ELSA Lisinopril (Lisinopril 20 Mg Tab) 20 mg PO QDAY [facility] Last Admin: 01/09/21 09:51 Dose: 20 mg Documented by: Morphine Sulfate (Morphine 4 Mg/1 Ml Inj) 2 mg IV Q5MIN PRN PRN Reason: Chest Pain Nitroglycerin (Nitroglycerin 0.4 Mg Tab Subl) 0.4 mg SL Q5M PRN PRN Reason: Chest Pain Pantoprazole Sodium (Pantoprazole 40 Mg Tab) 40 mg PO QDAY ELSA Last Admin: 01/09/21 09:55 Dose: 40 mg Documented by: Sodium Chloride (Sodium Chloride 0.9% 10 Ml Flush Syringe) 10 ml IV PRN PRN PRN Reason: LINE FLUSH Tramadol HCl (Tramadol 50 Mg Tab) 50 mg PO Q6H PRN PRN Reason: Pain, Moderate (4-6) Review of Systems Cardiovascular: chest pain, palpitations, rapid/irregular heart beat, shortness of breath, no orthopnea, no edema, no syncope, no lightheadedness Physical Examination Vital Signs Temp Pulse Resp BP Pulse Ox 98.7 F 97 H 18 148/77 100 01/09/21 02:35 01/09/21 02:35 01/09/21 02:35 01/09/21 02:35 01/09/21 02:35 General appearance: no acute distress HEENT: Positive: PERRL Neck: Positive: neck supple Cardiac: Positive: Reg Rate and Rhythm Lungs: Positive: Decreased Breath Sounds Neuro: Positive: Grossly Intact Abdomen: Positive: Soft Female genitourinary: deferred Skin: Positive: Clear Extremities: Absent: edema Results 01/09/21 09:00 01/09/21 09:00 Cardiac Enzymes 01/09/21 Range/Units 03:34 AST 20 (5-40) units/L Coagulation 01/09/21 Range/Units 03:34 PT 13.5 (12.2-14.9) Sec. INR 0.98 (0.87-1.13) APTT 24.9 (24.2-36.6) Sec. CBC 01/09/21 01/09/21 Range/Units 03:34 09:00 WBC 13.2 H 11.8 H (4.5-11.0) K/mm3 RBC 4.74 4.71 (3.65-5.03) M/mm3 Hgb 12.2 11.7 (10.1-14.3) gm/dl Hct 37.0 36.3 (30.3-42.9) % Plt Count 294 315 (140-440) K/mm3 Lymph # (Auto) 1.1 L 1.5 (1.2-5.4) K/mm3 [place] # (Auto) 0.9 H 0.8 (0.0-0.8) K/mm3 Eos # (Auto) 0.1 0.1 (0.0-0.4) K/mm3 Baso # (Auto) 0.1 0.1 (0.0-0.1) K/mm3 Comprehensive Metabolic Panel 01/09/21 01/09/21 Range/Units 03:34 09:00 Sodium 138 136 L (137-145) mmol/L Potassium 3.7 3.9 (3.6-5.0) mmol/L Chloride 101.4 100.8 (98-107) mmol/L Carbon Dioxide 25 25 (22-30) mmol/L BUN 18 H 14 (7-17) mg/dL Creatinine 0.7 0.6 (0.6-1.2) mg/dL Glucose 118 H 110 H (65-100) mg/dL Calcium 9.7 9.7 (8.4-10.2) mg/dL AST 20 (5-40) units/L ALT 15 (7-56) units/L Alkaline Phosphatase 83 (35-129) units/L Total Protein 6.9 (6.3-8.2) g/dL Albumin 4.6 (3.9-5) g/dL EKG interpretations - Telemetry EKG Rhythm: Sinus Rhythm Assessment and Plan - Patient Problems (1) Palpitations Current Visit: Yes Status: Acute Plan to address problem: Patient presented with primary symptoms of palpitations, possibly due to brief recurrence of her paroxysmal atrial fibrillation. Her chest pain is atypical, and appears likely musculoskeletal. Patient had a normal thallium stress test just 8 months ago, no further ischemic work-up is indicated. We will obtain full outpatient records for further review and complement with additional medications if needed for paroxysmal atrial fibrillation.
[2021-01-09] MEDS: HEPARIN 5,000 UNIT/1 ML VIAL SUB-Q SCH (16:45)
[2021-01-10] MEDS: HEPARIN 5,000 UNIT/1 ML VIAL SUB-Q SCH ×4 (00:40→13:13)
[2021-01-10] MEDS ORDERED: ASPIRIN EC 325 MG TAB PO SCH (10:00)
[2021-01-10] MEDS: LISINOPRIL 20 MG TAB PO SCH (10:03)
[2021-01-10] MEDS: PANTOPRAZOLE 40 MG TAB PO SCH (10:03)
--- NOTE | 2021-01-10 11:11 | Discharge Summary ---
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 Patient states that the symptoms started approximately an hour ago. Patient states she called EMS because she was scared. EMS states they gave the patient aspirin and nitro. Patient states the chest pain is in her left chest. Patient states a stabbing sensation. Patient also complains of shortness of breath. Patient states that her shortness of breath and chest pain are better with rest and worse with exertion. Patient states her chest pain was also better with nitro. Patient denies fever and chills. Patient states the chest pain made her anxious. Patient states he also had palpitations. Patient states she sees a admissions dean. In the emergency room initial cardiac enzyme is 0.010. Hospital course Patient was admitted to the floor and serial troponins were negative. EKG showed sinus rhythm. While she was in the hospital patient was in sinus rhythm and her heart rate was in the 70s. Patient has been follow with Dr. Lal gearman as an outpatient for paroxysmal tachyarrhythmias. Patient will follow with him within 1 week. Patient's chest pain resolved. Hypotension resolved. Labs were unremarkable. Was seen by cardiology and recommend to have follow-up with her gearman as an outpatient and if needed event monitor will be given as an outpatient. Patient was hemodynamically stable at the time of discharge. Management plan was discussed with the patient and was in agreement with the plan of care. Patient had a stress test 8 months ago and was normal. Disposition: - TO HOME OR SELFCARE Final Discharge Diagnosis (Prints w/discharge instructions): Chest pain. Palpitation Time spent for discharge: 25-minute - Discharge Diagnoses (1) Chest pain Status: Acute Qualifiers: Chest pain type: unspecified Qualified Code(s): R07.9 - Chest pain, unspecified (2) Hypertension Status: Acute (3) Palpitations Status: Acute Core Measure Documentation - Palliative Care Palliative Care/ Comfort Measures: Not Applicable - Core Measures Any of the following diagnoses?: none Exam - Physical Exam Narrative exam: Not in cardiopulmonary distress. The patient appeared well nourished and normally developed. Vital signs as documented. Head exam is unremarkable. No scleral icterus . Neck is without jugular venous distension, thyromegaly, or carotid bruits. Lungs are clear to auscultation. Cardiac exam reveals regular rate and Rhythm. Abdominal exam reveals normal bowel sounds, nontender, no organomegaly. Extremities are nonedematous and both femoral and pedal pulses are normal. [employer]: Alert and oriented 3. No focal weakness. - Constitutional Vitals: Temp Pulse Resp BP Pulse Ox 98.0 F 83 18 110/55 98 01/10/21 07:18 01/10/21 08:15 01/10/21 08:15 01/10/21 07:18 01/10/21 09:18 Plan Activity: no restrictions Weight Bearing Status: Full Weight Bearing Diet: regular Follow up with: SYDNEE MARTIN MD [Primary Care Provider] - 3-5 Days HERBERT LAL MD [Staff Physician] - 7 Days SHARRI ARGUETA MD [Staff Physician] - 7 Days Forms: Work/School Release Form
[2021-01-10 11:59] VITALS: BP 100/52
--- NOTE | 2021-01-10 13:30 | Progress Note ---
Assessment and Plan - Patient Problems (1) Palpitations Current Visit: Yes Status: Acute Plan to address problem: Patient presented with palpitations, she already sees an telecine operator as an outpatient for paroxysmal tachyarrhythmias, optimally followed up and managed by the telecine operator. Patient is stable for discharge to see Dr. Lal as outpatient in 3 to 5 days. If indicated, recommend further outpatient event monitoring. Subjective Date of service: 01/10/21 Interval history: Patient feels better, and no further palpitations. 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 She currently has a normal sinus rhythm at 70. Objective Vital Signs Temp Pulse Pulse Resp BP BP Pulse Ox 01/10/21 11:59 97.3 F L 68 19 100/52 99 01/10/21 09:18 98 01/10/21 08:15 83 18 97 01/10/21 07:18 98.0 F 82 19 110/55 96 01/10/21 04:33 97.9 F 76 18 102/58 99 01/10/21 03:00 83 18 97 01/10/21 00:25 80 01/10/21 00:10 98.0 F 81 18 90/44 98 01/09/21 20:29 97.8 F 82 18 124/64 97 01/09/21 16:50 66 15 100/51 100 01/09/21 16:48 94 H 100/51 01/09/21 15:00 78 78 18 97 01/09/21 13:55 83 18 112/65 97 - Physical Examination General: Appears Well, No Apparent Distress HEENT: Positive: PERRL Neck: Positive: neck supple Cardiac: Positive: Reg Rate and Rhythm Lungs: Positive: Decreased Breath Sounds Neuro: Positive: Grossly Intact Abdomen: Positive: Soft Skin: Positive: Clear Extremities: Absent: edema
--- NOTE | 2021-01-10 18:29 | Electrocardiograph Report ---
[facility] Test Date: 2021-01-10 Test Time: 11:15:07 Pat Name: NELI STONER Department: Room: A461 1 Gender: F Bat Boy/Girl: CLEMENT : 1970 Requested By: NAZ BANKS Order Number: [id number] Reading MD: Alcides Mcneil Measurements Intervals [place] Rate: 70 P: 34 DC: 153 QRS: 57 QRSD: 89 T: 46 QT: 407 QTc: 441 Interpretive Statements Sinus rhythm Compared to ECG 01/09/2021 02:47:14 T-wave abnormality no longer present Electronically Signed On 01-10-2021 18:28:53 EDT by Alcides Mcneil
== END 2021-01-10 14:59 | disposition home or self-care (01) ==
LOC: ED 02:34 → 4A 04:57
PROVIDERS: ADMIT Hospitalist; ATTEND Internal Medicine
DX: I24.9 Acute ischemic heart disease, unspecified (principal); I10 Essential (primary) hypertension; I48.91 Unspecified atrial fibrillation; E78.5 Hyperlipidemia, unspecified; R00.2 Palpitations; Z79.82 Long term (current) use of aspirin; Z90.49 Acquired absence of other specified parts of digestive tract; Z79.899 Other long term (current) drug therapy; Z98.890 Other specified postprocedural states
CPT/HCPCS: 36415; 71045; 80053; 84484; 85025; 85610; 85730; 93005; 96374; 96375; 99291; A9270; G0378; J2270; J2405; 80048; J1644; J2785

== ENCOUNTER 2021-01-25 00:46 | Emergency (ER) | payer OTHER ==
[2021-01-25] MEDS ORDERED: ASPIRIN 325 MG TAB PO ONE ×2 (01:00→14:00)
[2021-01-25 01:33] LABS: Basophils # (Auto) 0.1 K/mm3 (0.0-0.1); Basophils % (Auto) 0.7 % (0.0-1.8); Eosinophils # (Auto) 0.1 K/mm3 (0.0-0.4); Eosinophils % (Auto) 1.6 % (0.0-4.3); Hematocrit 34.8 % (30.3-42.9); Hemoglobin 11.4 gm/dl (10.1-14.3); Lymphocytes # (Auto) 1.4 K/mm3 (1.2-5.4); Lymphocytes % (Auto) 17.4 % (13.4-35.0); Mean Corpuscular HGB Conc 33 % (30-34); Mean Corpuscular Volume 77 fl (79-97); Monocytes # (Auto) 0.5 K/mm3 (0.0-0.8); Monocytes % (Auto) 5.7 % (0.0-7.3); Platelet Count 304 K/mm3 (140-440); Red Blood Count 4.52 M/mm3 (3.65-5.03); Red Cell Distribution Width 14.4 % (13.2-15.2)
[2021-01-25 01:57] LABS: Alanine Aminotransferase 12 units/L (7-56); Albumin 4.6 g/dL (3.9-5); BUN/Creatinine Ratio 16; Blood Urea Nitrogen 11 mg/dL (7-17); Calcium 9.5 mg/dL (8.4-10.2); Hemolysis Index 0
[2021-01-25] MEDS ORDERED: SODIUM CHLORIDE 0.9% 1000 ML 1,000 ML IV ONE (12:53)
--- NOTE | 2021-01-25 13:32 | Emergency Department Report ---
ED Chest Pain HPI - General Chief Complaint: Chest Pain Stated Complaint: CHEST PAIN Time Seen by Provider: 01/25/21 12:30 Source: patient Mode of arrival: Ambulatory Limitations: Language Barrier - History of Present Illness Initial Comments: 50-year-old female with history of hypertension, hyperlipidemia, asthma, and atrial fibrillation on flecainide but no anticoagulation presents complaining of variety of symptoms, most significantly chest pain last night which lasted 3 hours. Patient states that last night she began having chest pain with palp itations and shortness of breath after waking up from an sleep she also reported having a hot flash where her face got warm. She describes the pain as a pressure sensation. It was nonradiating. She denies any associated fever, cough, nausea/vomiting. She also denies syncope or LOC. The pain lasted 3 hours and then resolved spontaneously. The patient states that although she is prescribed flecainide for her atrial fibrillation, she stopped taking it 1 month ago and takes it only when she has palpitations. She also states that she was started on clarithromycin approximately 4 days ago for a wound of her right axilla. She is not vaccinated against the coronavirus. She says her LMP was 6 days ago. Severity scale (0 -10): 0 - Related Data Home Medications Medication Instructions Recorded Confirmed Last Taken Pantoprazole [Protonix TAB] 40 mg PO QDAY 01/09/21 01/25/21 01/25/21 Ramipril 10 mg PO QDAY 01/09/21 01/25/21 01/25/21 Allergies Allergy/AdvReac Type Severity Reaction Status Date / Time iodine Allergy Anaphylaxis Verified 11/23/20 15:14 Penicillins Allergy Anaphylaxis Verified 01/25/21 12:47 Sulfa (Sulfonamide Allergy Anaphylaxis Verified 11/23/20 15:14 Antibiotics) iodoquinol [From Yodoxin] AdvReac Unknown Verified 11/23/20 15:14 tetracycline AdvReac Unknown Verified 11/23/20 15:14 Heart Score - HEART Score History: Moderately suspicious EKG: Normal Age: 45-65 Risk factors: > 3 risk factors or hx of atherosclerotic disease Troponin: < normal limit HEART Score: 4 - EKG Read Time Time EKG Completed: 01:02 EKG Read Time: 01:06 ED Review of Systems ROS: Stated complaint: CHEST PAIN Other details as noted in HPI Constitutional: denies: chills, fever Eyes: denies: eye pain, vision change ENT: denies: throat pain, congestion Respiratory: shortness of breath. denies: cough Cardiovascular: chest pain, palpitations. denies: edema, syncope Gastrointestinal: denies: abdominal pain, nausea, vomiting, diarrhea, constipation Genitourinary: denies: dysuria, frequency Musculoskeletal: denies: back pain, arthralgia Skin: lesions (right axilla). denies: rash Neurological: paresthesias (occassionally). denies: headache, weakness, numbness, confusion, vertigo Hematological/Lymphatic: denies: easy bleeding, easy bruising ED Past Medical Hx - Past Medical History Previous Medical History?: Yes Hx Hypertension: Yes Hx Congestive Heart Failure: No Hx Diabetes: No Hx Asthma: Yes Hx COPD: No Additional medical history: Atrial fib and hyperlipidemia - Surgical History Past Surgical History?: Yes Hx Appendectomy: Yes (PATIENT AT AGE 16) Additional Surgical History: B/L Hand - Social History Smoking Status: Never Smoker - Medications Home Medications: Home Medications Medication Instructions Recorded Confirmed Last Taken Type Pantoprazole [Protonix TAB] 40 mg PO QDAY 01/09/21 01/25/21 01/25/21 History Ramipril 10 mg PO QDAY 01/09/21 01/25/21 01/25/21 History ED Physical Exam - General Limitations: Language Barrier - Other Other exam information: GENERAL: Well developed and well nourished. No acute distress HEAD: Normocephalic. No obvious signs of trauma. ENT: Moist mucous membranes. EYES: Extraocular movements are intact. Pupils are equal round and reactive to light bilaterally NECK: Supple. Full ROM is intact. Trachea is midline. LUNGS: Nonlabored breathing. Equal chest rise bilaterally. Clear to auscultation bilaterally. CARDIOVASCULAR: Regular rate and rhythm. No murmurs or rubs. CHEST: To the right chest wall just adjacent to the axilla there is a small pustule without surrounding erythema or fluctuance. VASCULAR: Cap refill < 2 seconds ABDOMEN: Abdomen is soft and nondistended. There is no significant tenderness, guarding or rebound. SKIN: Skin is warm and dry NEURO: Patient is awake, alert, and oriented. 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 No focal deficits. Normal motor and sensory exam throughout. Normal speech. MUSCULOSKELETAL: No obvious deformities. No significant tenderness. Normal ROM throughout. BACK/SPINE: No midline tenderness or step-offs of the C/T/L spine. No costovertebral angle tenderness. ED Course Vital Signs 01/25/21 01/25/21 01/25/21 00:59 11:45 12:34 Temperature 98.9 F 97.6 F Pulse Rate 98 H 74 Respiratory 16 18 Rate Blood Pressure 136/80 Blood Pressure 130/74 [Right] O2 Sat by Pulse 98 100 100 Oximetry 01/25/21 01/25/21 01/25/21 12:44 12:46 13:00 Temperature Pulse Rate 76 73 73 Respiratory 11 L 10 L 17 Rate Blood Pressure 145/81 136/74 Blood Pressure 145/81 [Right] O2 Sat by Pulse 100 99 100 Oximetry LENO score - Leno Score Age > 65: (0) No Aspirin use within the Past 7 Days: (1) Yes 3 or more CAD Risk Factors: (1) Yes 2 or more Angina events in past 24 hrs: (1) Yes Known CAD with more than 50% Stenosis: (0) No Elevated Cardiac Markers: (0) No ST Deviation Greater than 0.5mm: (0) No LENO Score: 3 ED Medical Decision Making - Lab Data Result diagrams: 01/25/21 01:09 01/25/21 01:09 Lab Results 01/25/21 01/25/21 01/25/21 Range/Units 01:09 01:09 04:26 WBC 8.3 (4.5-11.0) K/mm3 RBC 4.52 (3.65-5.03) M/mm3 Hgb 11.4 (10.1-14.3) gm/dl Hct 34.8 (30.3-42.9) % MCV 77 L (79-97) fl MCH 25 L (28-32) pg MCHC 33 (30-34) % RDW 14.4 (13.2-15.2) % Plt Count 304 (140-440) K/mm3 Lymph % (Auto) 17.4 (13.4-35.0) % Grayson % (Auto) 5.7 (0.0-7.3) % Eos % (Auto) 1.6 (0.0-4.3) % Baso % (Auto) 0.7 (0.0-1.8) % Lymph # (Auto) 1.4 (1.2-5.4) K/mm3 Grayson # (Auto) 0.5 (0.0-0.8) K/mm3 Eos # (Auto) 0.1 (0.0-0.4) K/mm3 Baso # (Auto) 0.1 (0.0-0.1) K/mm3 Seg Neutrophils % 74.6 H (40.0-70.0) % Seg Neutrophils # 6.2 (1.8-7.7) K/mm3 Sodium 139 (137-145) mmol/L Potassium 3.8 (3.6-5.0) mmol/L Chloride 102.6 (98-107) mmol/L Carbon Dioxide 25 (22-30) mmol/L Anion Gap 15 mmol/L BUN 11 (7-17) mg/dL Creatinine 0.7 (0.6-1.2) mg/dL Estimated GFR > 60 ml/min BUN/Creatinine Ratio 16 % Glucose 96 (65-100) mg/dL Calcium 9.5 (8.4-10.2) mg/dL Total Bilirubin 0.20 (0.1-1.2) mg/dL AST 18 (5-40) units/L ALT 12 (7-56) units/L Alkaline Phosphatase 81 (35-129) units/L Troponin T < 0.010 < 0.010 (0.00-0.029) ng/mL Total Protein 7.3 (6.3-8.2) g/dL Albumin 4.6 (3.9-5) g/dL Albumin/Globulin Ratio 1.7 % 01/25/21 Range/Units 07:14 WBC (4.5-11.0) K/mm3 RBC (3.65-5.03) M/mm3 Hgb (10.1-14.3) gm/dl Hct (30.3-42.9) % MCV (79-97) fl MCH (28-32) pg MCHC (30-34) % RDW (13.2-15.2) % Plt Count (140-440) K/mm3 Lymph % (Auto) (13.4-35.0) % Grayson % (Auto) (0.0-7.3) % Eos % (Auto) (0.0-4.3) % Baso % (Auto) (0.0-1.8) % Lymph # (Auto) (1.2-5.4) K/mm3 Grayson # (Auto) (0.0-0.8) K/mm3 Eos # (Auto) (0.0-0.4) K/mm3 Baso # (Auto) (0.0-0.1) K/mm3 Seg Neutrophils % (40.0-70.0) % Seg Neutrophils # (1.8-7.7) K/mm3 Sodium (137-145) mmol/L Potassium (3.6-5.0) mmol/L Chloride (98-107) mmol/L Carbon Dioxide (22-30) mmol/L Anion Gap mmol/L BUN (7-17) mg/dL Creatinine (0.6-1.2) mg/dL Estimated GFR ml/min BUN/Creatinine Ratio % Glucose (65-100) mg/dL Calcium (8.4-10.2) mg/dL Total Bilirubin (0.1-1.2) mg/dL AST (5-40) units/L ALT (7-56) units/L Alkaline Phosphatase (35-129) units/L Troponin T < 0.010 (0.00-0.029) ng/mL Total Protein (6.3-8.2) g/dL Albumin (3.9-5) g/dL Albumin/Globulin Ratio % - EKG Data -: EKG Interpreted by Ok - EKG Data 01/25/21 13:28 Normal sinus rhythm. Normal axis. Normal intervals. No ectopy. No significant ST segment or T wave abnormalities. - Radiology Data CHEST 2 VIEWS INDICATION / CLINICAL INFORMATION: chest pain. COMPARISON: 01/09/2021 FINDINGS: SUPPORT DEVICES: None. HEART / MEDIASTINUM: No significant abnormality. LUNGS / PLEURA: No significant pulmonary or pleural abnormality. No pneumothorax. ADDITIONAL FINDINGS: Mild pectus excavatum chest wall deformity. IMPRESSION: 1. No acute findings. No interval change. Signer Name: Daniella Hough MD Signed: 01/25/2021 12:29 PM Workstation Name: [id number] - Medical Decision Making 50-year-old female with history of hypertension, hyperlipidemia, asthma, and history of atrial fibrillation not on anticoagulation and noncompliant with prescribed flecainide presents complaining of 3 hours of chest pain last night with palpitations and hot flashes. Patient is unable to explain why she is noncompliant with her prescribed antiarrhythmic. She is afebrile and with normal vital signs although initially her heart rate was 98 and improved to 74. She is chest pain free currently. Labs were drawn in triage and reveal no si gnificant leukocytosis or anemia. Kidney function is normal and there are no significant electrolyte abnormalities. Troponin is negative x2. Nonetheless, the patient's heart score is 4. Chest x-ray has not been performed yet. Given the patient's additional history we will perform further work-up with additional labs and possible CTA of the chest. Chest x-ray shows no acute abnormalities. At 2:40 PM, the patient expressed her desire to leave AGAINST MEDICAL ADVICE. I spoke with her immediately and explained that refusing further work-up and leaving AGAINST MEDICAL ADVICE confers the risk of missed diagnoses, worsening symptoms, temporary/permanent disability and or . The patient expressed understanding and still wants to go home. She was able to articulate back to me the risks I had explained to her. Shortly thereafter, the patient asked me to write her a work excuse note. I told her that given she is leaving AGAINST MEDICAL ADVICE I cannot write a note that suggests it is okay for her to return to work as I feel she needs to be admitted to the hospital for further work-up and management. I encouraged her to return to the emergency department and any time should she change her mind or should she develop new or concerning symptoms Critical care attestation.: If time is entered above; I have spent that time in minutes in the direct care of this critically ill patient, excluding procedure time. ED Disposition Clinical Impression: Chest pain, Palpitations Disposition: [id number] LEFT AGAINST MED ADVICE Is pt being admited?: No Condition: Undetermined Instructions: Nonspecific Chest Pain, Adult
[2021-01-25 15:03] VITALS: BP 136/74
--- NOTE | 2021-01-27 10:36 | Electrocardiograph Report ---
[facility], [place] Test Date: 2021-01-25 Test Time: 01:02:50 Pat Name: NELI STONER Department: Room: Gender: F Gambling Monitor: [place] : 1970 Requested By: SOPHIE MCDERMOTT Order Number: [id number] Reading MD: Deniz Capone Measurements Intervals [place] Rate: 94 P: 57 HI: 183 QRS: 54 QRSD: 88 T: 28 QT: 361 QTc: 453 Interpretive Statements Sinus rhythm Probable left atrial enlargement Compared to ECG 01/10/2021 11:15:07 No significant changes Electronically Signed On 01-27-2021 10:36:31 EDT by Deniz Capone
== END 2021-01-25 14:50 | disposition left against medical advice (07) ==
LOC: ED 00:46
DX: R07.9 Chest pain, unspecified (principal); R00.2 Palpitations; E78.5 Hyperlipidemia, unspecified; I48.91 Unspecified atrial fibrillation; I10 Essential (primary) hypertension; J45.909 Unspecified asthma, uncomplicated; Z90.49 Acquired absence of other specified parts of digestive tract; Z91.041 Radiographic dye allergy status; Z79.899 Other long term (current) drug therapy; Z88.0 Allergy status to penicillin; Z88.2 Allergy status to sulfonamides; Z98.890 Other specified postprocedural states
CPT/HCPCS: 36415; 71046; 80053; 84484; 85025; 93005; J7030

== ENCOUNTER 2021-05-10 01:01 | Observation (INO) | payer OTHER ==
[2021-05-10] MEDS: diphenhydrAMINE 25 MG CAP PO ONE ×2 (03:04→04:14)
--- NOTE | 2021-05-10 03:13 | XRay Report ---
CHEST 2 VIEWS INDICATION: dizziness. COMPARISON: 01/25/2021 FINDINGS: Support devices: None. Heart: Within normal limits. Lungs/Pleura: No acute air space or interstitial disease. No significant pleural effusion. IMPRESSION: No acute findings. Signer Name: Donovan Valero MD Signed: 05/10/2021 3:08 AM Workstation Name: [id number]
--- NOTE | 2021-05-10 03:35 | Emergency Department Report ---
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 She has a history of paroxysmal A. fib, hypertension and high cholesterol. She presents to the emergency room today with a primary complaint of feeling unsteady and unbalanced for about 2 weeks. This is associate with a frontal and right-sided headache. She denies loss of vision. She denies chest pain. She is abdominal cramping, nausea, without vomiting. She reports that her primary care doctor, Dr. Dejesus, a few weeks ago, started her on a proton pump inhibitor, she believes either pantoprazole, or esomeprazole. She believes that at the starting the medication, she began to have dizziness and sensation of unsteady gait. She also endorses decreased sensation to light touch in her left leg. -: Gradual, week(s) Consistency: intermittent Improves with: rest Worsens with: other (Ambulation) - Related Data Home Medications Medication Instructions Recorded Confirmed Last Taken Pantoprazole [Protonix TAB] 40 mg PO QDAY 01/09/21 01/25/21 01/25/21 Ramipril 10 mg PO QDAY 01/09/21 01/25/21 01/25/21 Allergies Allergy/AdvReac Type Severity Reaction Status Date / Time iodine Allergy Anaphylaxis Verified 11/23/20 15:14 methocarbamol Allergy Hives Verified 05/10/21 01:26 metoclopramide Allergy Hives Verified 05/10/21 01:26 Penicillins Allergy Anaphylaxis Verified 01/25/21 12:47 Sulfa (Sulfonamide Allergy Anaphylaxis Verified 11/23/20 15:14 Antibiotics) iodoquinol [From Yodoxin] AdvReac Unknown Verified 11/23/20 15:14 tetracycline AdvReac Unknown Verified 11/23/20 15:14 yodo Allergy Hives Uncoded 05/10/21 01:26 ED Review of Systems ROS: Stated complaint: HEADACHE Other details as noted in HPI Constitutional: denies: fever Eyes: denies: eye discharge ENT: denies: epistaxis Respiratory: denies: cough Cardiovascular: denies: chest pain Gastrointestinal: nausea, other (Abdominal cramp) Neurological: headache, numbness, abnormal gait ED Past Medical Hx - Past Medical History Hx Hypertension: Yes Hx Congestive Heart Failure: No Hx Diabetes: No Hx Asthma: Yes Hx COPD: No Additional medical history: Atrial fib and hyperlipidemia - Surgical History Hx Appendectomy: Yes (PATIENT AT AGE 16) Additional Surgical History: B/L Hand - Social History Smoking Status: Never Smoker - Medications Home Medications: Home Medications Medication Instructions Recorded Confirmed Last Taken Type Pantoprazole [Protonix TAB] 40 mg PO QDAY 01/09/21 01/25/21 01/25/21 History Ramipril 10 mg PO QDAY 01/09/21 01/25/21 01/25/21 History ED Physical Exam - General Limitations: Language Barrier General appearance: alert, in no apparent distress - Head Head exam: Present: atraumatic, normocephalic - Eye Eye exam: Present: normal appearance, PERRL, EOMI, other (Visual acuity is intact to finger counting color perception at the close distance). Absent: nystagmus - ENT ENT exam: Present: normal exam, normal orophraynx, mucous membranes moist, normal external ear exam - Neck Neck exam: Present: normal inspection, full ROM. Absent: tenderness, meningismus - Respiratory Respiratory exam: Present: normal lung sounds bilaterally. Absent: respiratory distress, wheezes, rales, rhonchi, stridor, decreased breath sounds - Cardiovascular Cardiovascular Exam: Present: regular rate, normal rhythm, normal heart sounds. Absent: bradycardia, tachycardia, irregular rhythm, systolic murmur, diastolic murmur, rubs, gallop - GI/Abdominal GI/Abdominal exam: Present: soft. Absent: distended, tenderness, guarding, rebound, rigid, pulsatile mass - Extremities Exam Extremities exam: Present: normal inspection, full ROM, other (2+ pulses noted in the bilateral upper and lower extremities. There is no palpable cord. negative Homans sign. Muscular compartments are soft. The pelvis is stable.). Absent: pedal edema, calf tenderness - Back Exam Back exam: Present: normal inspection, full ROM. Absent: tenderness, CVA tenderness (R), CVA tenderness (L), paraspinal tenderness, vertebral tenderness - Neurological Exam Neurological exam: Present: alert, abnormal gait (Patient walks with a broad- based unsteady gait. She is not able to tolerate tandem gait. There is a positive Romberg examination), motor sensory deficit (Decreased sensation to light touch left side/left lower extremity), other (There is no facial droop. Tongue midline. EOMI. V1, V2, V3 intact to light touch bilaterally. 5 out of 5 strength in 4 extremities. Sensation intact to light touch right arm and right leg) - Psychiatric Psychiatric exam: Present: anxious - Skin Skin exam: Present: warm, dry, intact, normal color. Absent: rash ED Course Vital Signs 05/10/21 01:22 Temperature 97.8 F Pulse Rate 91 H Respiratory 18 Rate Blood Pressure 117/68 [Left] O2 Sat by Pulse 99 Oximetry - Reevaluation(s) Reevaluation #1: 05/10/21 03:46 Differential diagnosis, including but not limited to: Migraine headache, tension headache, cluster headache, complex migraine, subacute stroke Assessment and plan: 50-year-old female, who was afebrile, with reassuring vital signs and clinically sober, presenting with a complaint of unsteady gait for a few weeks, nonspecific headache, and possibility of adverse effect from proton pump inhibitor. She is not a TPA candidate as his symptoms have been present for greater than 4.5 hours. She has an NIH score of 1 on my examination, symptoms present for greater than 24 hours, no indication for emergent CT angiogram. We will obtain appropriate laboratory studies and noncontrast CT scan of the brain. We will discuss with neurology on-call. We will treat her symptoms. Anticipate admission to the medical service for diagnostic evaluation and work- up to exclude stroke, further evaluate history of unsteady gait. I discussed this with the patient, using our roll tension tester service. The patient articulated understanding. She tells me she has not taken a proton pump inhibitor in 5 or 6 days. 05/10/21 04:[address] scan of the brain is negative for acute findings. Contacted neurology on-call, Dr. Porras. Discussed history, physical, clinical impression. We both agree the patient is not a TPA candidate. We both agree the patient does not require emergent CT angiogram. Admission is recommended for acquisition of MRI. Aspirin ordered. Hospital physician, Dr. Patrick Tate to admit to [facility], with CLAYTON Mcclain ED Medical Decision Making - Lab Data Result diagrams: 05/10/21 03:22 05/10/21 03:22 Vital Signs 05/10/21 01:22 Temperature 97.8 F Pulse Rate 91 H Respiratory 18 Rate Blood Pressure 117/68 [Left] O2 Sat by Pulse 99 Oximetry - EKG Data -: EKG Interpreted by Me EKG shows normal: sinus rhythm Rate: normal - EKG Data 05/10/21 03:45 The EKG is interpreted at 03: 41 Sinus rhythm, 85 bpm. Normal axis, QTC 475 ms. Abnormal EKG. Not a STEMI. Unchanged when compared to prior EKG from 01/26/2020 - Radiology Data Radiology results: pending Critical care attestation.: If time is entered above; I have spent that time in minutes in the direct care of this critically ill patient, excluding procedure time. ED Disposition Clinical Impression: Unsteady gait, Headache Disposition: ADMITTED INPATIENT Is pt being admited?: Yes Does the pt Need Aspirin: No Condition: Good Referrals: [facility] MD ELIO [Primary Care Provider] - 3-5 Days - Assessment Assessment Interval: Baseline - Level of Consciousness 1a. Level of Consciousness: alert/keenly responsive - LOC Questions 1b. LOC Questions: answers both correctly - LOC Command 1c. LOC Commands: performs tasks correctly - Best Gaze 2. Best Gaze: normal - Visual 3. Visual: no visual loss - Facial Palsy 4. Facial Palsy: normal symmetrical movement - Motor Arm 5a. Motor Arm Left: no drift 5b. Motor Arm Right: no drift - Motor Leg 6a. Motor Leg Left: no drift 6b. Motor Leg Right: no drift - Limb Ataxia 7. Limb Ataxia: absent - Sensory 8. Sensory: mild/moderate sensory loss - Best Language 9. Best Language: no aphasia - Dysarthria 10. Dysarthria: normal - Extinction and Inattention 11. Extinction/Inattention: no abnormality - Scoring Total Score: 1 Stroke Severity: Minor Stroke
[2021-05-10] MEDS ORDERED: LIDOCAINE (4%) 40 MG/ML TOPICAL SOLN 50 ML BOTTLE TP ONE (03:36)
[2021-05-10] MEDS ORDERED: ACETAMINOPHEN 325 MG TAB PO ONE (03:36)
[2021-05-10 04:02] LABS: Basophils # (Auto) 0.1 K/mm3 (0.0-0.1); Basophils % (Auto) 1.3 % (0.0-1.8); Eosinophils # (Auto) 0.1 K/mm3 (0.0-0.4); Eosinophils % (Auto) 0.6 % (0.0-4.3); Hematocrit 37.2 % (30.3-42.9); Hemoglobin 11.4 gm/dl (10.1-14.3); Lymphocytes # (Auto) 1.5 K/mm3 (1.2-5.4); Lymphocytes % (Auto) 18.1 % (13.4-35.0); Mean Corpuscular HGB Conc 31 % (30-34); Mean Corpuscular Volume 76 fl (79-97); Monocytes # (Auto) 0.8 K/mm3 (0.0-0.8); Monocytes % (Auto) 9.6 % (0.0-7.3); Platelet Count 334 K/mm3 (140-440); Red Blood Count 4.89 M/mm3 (3.65-5.03); Red Cell Distribution Width 15.4 % (13.2-15.2)
[2021-05-10] MEDS: ONDANSETRON 4 MG/2 ML INJ IV ONE ×2 (04:15→04:42)
[2021-05-10 04:23] LABS: Alanine Aminotransferase 11 units/L (7-56); Albumin 4.5 g/dL (3.9-5); Blood Urea Nitrogen 13 mg/dL (7-17); Calcium 9.4 mg/dL (8.4-10.2); Hemolysis Index 10
[2021-05-10 04:24] LABS: INR 0.96 (0.87-1.13)
[2021-05-10 04:25] LABS: Partial Thromboplastin Time 28.4 Sec. (24.2-36.6)
[2021-05-10 04:28] LABS: BUN/Creatinine Ratio 19
--- NOTE | 2021-05-10 04:39 | Cat Scan Report ---
CT head without contrast INDICATION : Headache and unsteady gait. TECHNIQUE: Axial imaging performed from the skull apex through the skull base without the use of con trast. All CT scans at this location are performed using CT dose reduction for ALARA by means of aut omated exposure control. COMPARISON: 11/23/2020 FINDINGS: Parenchyma: No mass, stroke or hemorrhage. Ventricles: Ventricles are normal in size and appear symmetric. Soft tissues: Soft tissues including the orbits appear normal. Bones: No acute osseous abnormality. Sinuses: Sinuses and mastoid air cells are clear. IMPRESSION: No acute abnormality. Signer Name: Donovan Valero MD Signed: 05/10/2021 4:35 AM Workstation Name: [id number]
[2021-05-10] MEDS ORDERED: ASPIRIN 325 MG TAB PO ONE (04:58)
--- NOTE | 2021-05-10 05:25 | History and Physical Report ---
History of Present Illness Date of examination: 05/10/21 Date of admission: 05/10/21 Chief complaint: Headache and unsteady gait History of present illness: This is a 50 year old female patient seen in ED at bedside. healthcare administrator used during assessment with number [id number]. She presents to the emergency room today with chief complaint of feeling unsteady and unbalanced for about 2 weeks. This is associate with a frontal and right-sided headache. She denies loss of vision. She denies chest pain. She denies abdominal cramping, nausea, and vomiting. Per Ed record, She reports that her primary care doctor, Dr. Dejesus, a few weeks ago, started her on a proton pump inhibitor, she believes either pantoprazole, or esomeprazole. She believes that at the starting the medication, she began to have dizziness and sensation of unsteady gait. She denies alcohol use, tobacco use and illicit drug use. Past History Past Medical History: atrial fib, hypertension, hyperlipidemia Past Surgical History: appendectomy Social history: Lives alone, full code. denies: smoking, alcohol abuse, prescription drug abuse, IV drug use Family history: diabetes, hypertension Medications and Allergies Allergies Allergy/AdvReac Type Severity Reaction Status Date / Time iodine Allergy Anaphylaxis Verified 11/23/20 15:14 methocarbamol Allergy Hives Verified 05/10/21 01:26 metoclopramide Allergy Hives Verified 05/10/21 01:26 Penicillins Allergy Anaphylaxis Verified 01/25/21 12:47 Sulfa (Sulfonamide Allergy Anaphylaxis Verified 11/23/20 15:14 Antibiotics) iodoquinol [From Yodoxin] AdvReac Unknown Verified 11/23/20 15:14 tetracycline AdvReac Unknown Verified 11/23/20 15:14 yodo Allergy Hives Uncoded 05/10/21 01:26 Home Medications Medication Instructions Recorded Confirmed Last Taken Type Pantoprazole [Protonix TAB] 40 mg PO QDAY 01/09/21 01/25/21 01/25/21 History Ramipril 10 mg PO QDAY 01/09/21 01/25/21 01/25/21 History Review of Systems Constitutional: weakness Ears, nose, mouth and throat: no epistaxis, no bleeding gums Cardiovascular: high blood pressure, no chest pain, no orthopnea Respiratory: no congestion, no wheezing Gastrointestinal: no melena Rectal: no hemorrhoids Musculoskeletal: muscle weakness Integumentary: no rash, no pruritis, no redness Psychiatric: anxiety, depression Hematologic/Lymphatic: no easy bruising, no easy bleeding, no lymphadenopathy, no lymphedema Allergic/Immunologic: no urticaria, no allergic rhinitis Exam - Constitutional Vitals: Temp Pulse Resp BP Pulse Ox 97.8 F 91 H 18 117/68 99 05/10/21 01:22 05/10/21 01:22 05/10/21 01:22 05/10/21 01:22 05/10/21 01:22 General appearance: Present: no acute distress, well-nourished - EENT Eyes: Present: PERRL ENT: hearing intact, clear oral mucosa - Neck Neck: Present: supple, normal ROM - Respiratory Respiratory effort: normal Respiratory: bilateral: CTA - Cardiovascular Heart Sounds: Present: S1 & S2. Absent: rub, click - Extremities Extremities: pulses symmetrical, No edema Peripheral Pulses: within normal limits - Abdominal General gastrointestinal: Present: soft, non-tender, non-distended, normal bowel sounds Female genitourinary: Present: normal - Integumentary Integumentary: Present: clear, warm, dry - Musculoskeletal Musculoskeletal: gait normal, strength equal bilaterally - Psychiatric Psychiatric: appropriate mood/affect, intact judgment & insight, cooperative - Neurologic Neurologic: CNII-XII intact, moves all extremities - Allied Health Allied health notes reviewed: nursing HEART Score - HEART Score Troponin: Troponin T < 0.010 ng/mL (0.00-0.029) 05/10/21 03:22 Results - Labs CBC & Chem 7: 05/10/21 03:22 05/10/21 03:22 Labs: Abnormal lab results 05/10/21 05/10/21 Range/Units 03:22 03:22 MCV 76 L (79-97) fl MCH 23 L (28-32) pg RDW 15.4 H (13.2-15.2) % [place] % (Auto) 9.6 H (0.0-7.3) % Seg Neutrophils % 70.4 H (40.0-70.0) % Glucose 113 H (65-100) mg/dL Assessment and Plan - Patient Problems (1) Headache Current Visit: Yes Status: Acute Plan to address problem: Questionable cause CT of the head doneno acute finding. As needed pain management MRI of the brainfollow-up with results (2) Unsteady gait Current Visit: Yes Status: Acute Plan to address problem: Unknown cause/CVA Safety and fall precaution at all times PT OT consult MRIrule out CVA (3) Hyperlipidemia Current Visit: No Status: Acute Plan to address problem: Resume home statin (4) Hypertension Current Visit: No Status: Acute Plan to address problem: Monitor blood pressure Resume home antihypertensive As needed hydralazine (5) Palpitations Current Visit: No Status: Acute Plan to address problem: Patient has a history of A. fib stroke per recordnot on anticoagulation Aspirin and Plavix (6) DVT prophylaxis Current Visit: No Status: Acute Plan to address problem: Heparin subcutaneous
[2021-05-10] MEDS ORDERED: ONDANSETRON 4 MG/2 ML INJ IV PRN (05:28)
[2021-05-10] MEDS ORDERED: MAGNESIUM HYDROXIDE (MOM) ORAL LIQD UDC PO PRN (05:28)
[2021-05-10] MEDS ORDERED: LORazepam 2 MG/ML VIAL IV PRN (05:28)
[2021-05-10] MEDS ORDERED: SENNOSIDES 8.6 MG TAB PO PRN (05:28)
[2021-05-10] MEDS ORDERED: ACETAMINOPHEN 325 MG TAB PO PRN (05:28)
[2021-05-10] MEDS ORDERED: ALUM-MAG HYDROXIDE-SIMETHICONE 200-200-20MG/5ML ORAL LIQD 30 ML PO PRN (05:28)
[2021-05-10] MEDS ORDERED: oxyCODONE /ACETAMINOPHEN 5-325MG TAB PO PRN (05:28)
[2021-05-10] MEDS ORDERED: traMADol 50 MG TAB PO PRN (05:37)
[2021-05-10] MEDS ORDERED: hydrALAZINE 20 MG/1 ML INJ IV PRN (05:37)
--- NOTE | 2021-05-10 07:04 | Consultation ---
Past History Past Medical History: atrial fib, hypertension, hyperlipidemia Past Surgical History: appendectomy Social history: Lives alone, full code. denies: smoking, alcohol abuse, prescription drug abuse, IV drug use Family history: diabetes, hypertension Medications and Allergies Allergies Allergy/AdvReac Type Severity Reaction Status Date / Time iodine Allergy Anaphylaxis Verified 11/23/20 15:14 methocarbamol Allergy Hives Verified 05/10/21 01:26 metoclopramide Allergy Hives Verified 05/10/21 01:26 Penicillins Allergy Anaphylaxis Verified 01/25/21 12:47 Sulfa (Sulfonamide Allergy Anaphylaxis Verified 11/23/20 15:14 Antibiotics) iodoquinol [From Yodoxin] AdvReac Unknown Verified 11/23/20 15:14 tetracycline AdvReac Unknown Verified 11/23/20 15:14 yodo Allergy Hives Uncoded 05/10/21 01:26 Home Medications Medication Instructions Recorded Confirmed Last Taken Type Pantoprazole [Protonix TAB] 40 mg PO QDAY 01/09/21 01/25/21 01/25/21 History Ramipril 10 mg PO QDAY 01/09/21 01/25/21 01/25/21 History Active Meds: Active Medications Acetaminophen (Acetaminophen 325 Mg Tab) 650 mg PO Q4H PRN PRN Reason: Pain MILD(1-3)/Fever >100.5/BERNABE Al Hydrox/Mg Hydrox/Simethicone (Alum-Mag Hydroxide-Simethicone [phone]/5ml Oral Liqd 30 Ml) 30 ml PO Q4H PRN PRN Reason: Indigestion Heparin Sodium (Porcine) (Heparin 5,000 Unit/1 Ml Vial) 5,000 unit SUB-Q Q8HR ELSA Hydralazine HCl (Hydralazine 20 Mg/1 Ml Inj) 5 mg IV Q4H PRN PRN Reason: Hypertension Lisinopril (Lisinopril 10 Mg Tab) 10 mg PO QDAY ELSA Lorazepam (Lorazepam 2 Mg/Ml Vial) 1 mg IV Q4H PRN PRN Reason: Seizures Magnesium Hydroxide (Magnesium Hydroxide (Mom) Oral Liqd Udc) 30 ml PO Q4H PRN PRN Reason: Constipation Ondansetron HCl (Ondansetron 4 Mg/2 Ml Inj) 4 mg IV Q8H PRN PRN Reason: Nausea And Vomiting Oxycodone/Acetaminophen (Oxycodone /Acetaminophen 5-325mg Tab) 1 tab PO Q6H PRN PRN Reason: Pain, Moderate (4-6) Senna (Sennosides 8.6 Mg Tab) 8.6 mg PO Q12HR PRN PRN Reason: Constipation Sodium Chloride (Sodium Chloride 0.9% 10 Ml Flush Syringe) 10 ml IV BID ELSA Sodium Chloride (Sodium Chloride 0.9% 10 Ml Flush Syringe) 10 ml IV PRN PRN PRN Reason: LINE FLUSH Tramadol HCl (Tramadol 50 Mg Tab) 50 mg PO Q4H PRN PRN Reason: Pain, Moderate (4-6) Trazodone HCl (Trazodone 50 Mg Tab) 50 mg PO QHS ELSA Physical Examination - Vital Signs Vital Signs: Vital Signs Temp Pulse Resp BP Pulse Ox 97.8 F 91 H 18 117/68 99 05/10/21 01:22 05/10/21 01:22 05/10/21 01:22 05/10/21 01:22 05/10/21 01:22 Results - Laboratory Findings CBC and BMP: 05/10/21 03:22 05/10/21 03:22 Abnormal Lab Findings: Abnormal Labs 05/10/21 05/10/21 03:22 03:22 MCV 76 L MCH 23 L RDW 15.4 H [place] % (Auto) 9.6 H Seg Neutrophils % 70.4 H Glucose 113 H Assessment and Plan [facility] Consult Note # Demographics Consult Type: General Neurology Patient Location: Emergency Room First Name: Esther Last Name: Kannan Date of : 1970 Age: 50 Gender: Female Facility: [facility] Time of Initial Page (Eastern Time): 05/10/2021, 04:33 Time of Return Call ( Time): 05/10/2021, 04:35 Phone Only Consult: 50F with balance trouble for a couple of weeks. Wide gait noted. CT ok reportedly. # Assessment Impression: Other Balance trouble. No clear focal. # Plan Labs: B12 Imaging: (urgency: routine): MRI Brain without contrast Other: I have discussed my recommendations with the referring provider Disposition: continue admission # Logistics Telemedicine: phone only
[2021-05-10] MEDS: HEPARIN 5,000 UNIT/1 ML VIAL SUB-Q SCH ×2 (07:43→15:00)
--- NOTE | 2021-05-10 09:54 | Magnetic Resonance Report ---
MR brain wo con INDICATION / CLINICAL INFORMATION: 50 years Female; headache. TECHNIQUE: Multiplanar, multisequence MR images of the brain were obtained. COMPARISON: CT head-05/10/2021 FINDINGS: BRAIN / INTRACRANIAL CONTENTS: No acute hemorrhage, mass effect, midline shift, hydrocephalus, or acu te, large territorial infarct. No chronic infarct or atrophy. Minimal, nonspecific white matter disea se identified. CRANIOCERVICAL JUNCTION: No significant abnormality. VASCULAR FLOW-VOIDS: No significant abnormality. ORBITS: No significant abnormality of visualized orbits. SINUSES / MASTOIDS: Mild to moderate mucosal thickening in the ethmoids. ADDITIONAL FINDINGS: None. IMPRESSION: 1. No focal mass, hemorrhage, hydrocephalus, or acute ischemia. Signer Name: Silviano Dumont MD, III Signed: 05/10/2021 9:50 AM Workstation Name: [email or web address] [id number]
[2021-05-10 09:56] VITALS: BP 124/77
[2021-05-10] MEDS ORDERED: LISINOPRIL 10 MG TAB PO SCH (10:00)
--- NOTE | 2021-05-10 12:47 | Discharge Summary ---
Providers - Providers Date of Admission: 05/10/21 06:18 Attending physician: JONATHAN HOWELL MD 05/10/21 05:29 Occupational Therapy Evaluate and Treat [CONS] Routine Comment: Reason For Exam: Neuro deficits Physical Therapy Evaluation and Treat [CONS] Routine Comment: Reason For Exam: Neuro deficits [facility] Hospitalization Condition: Good Exam - Constitutional Vitals: Temp Pulse Resp BP Pulse Ox 98 F 78 14 124/77 98 05/10/21 10:15 05/10/21 10:15 05/10/21 10:15 05/10/21 10:15 05/10/21 10:15 Plan Care Plan Goals: Please follow up with your primary care doctor and request a Gastroenterology re ferral for your uncontrolled reflux. Assessment: Patient reports with headache and unsteady gate since being prescribed omeprazole by her PCP. CT head was negative and MRI was also unremarkable for acute CVA. Patient complaints resolved and she was discharged at her request. Follow up with: LEONARD MARTEL MD [Primary Care Provider] - 3-5 Days Prescriptions: Antacid [Alum-Mag Hydrox-Simeth [phone]/5Ml] 30 ml PO Q4H PRN 10 Days #1800 ml PRN Reason: Indigestion
[2021-05-10] MEDS ORDERED: traZODone 50 MG TAB PO SCH (22:00)
--- NOTE | 2021-05-13 10:52 | Electrocardiograph Report ---
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
== END 2021-05-10 17:00 | disposition home or self-care (01) ==
LOC: ED 01:01 → 4A 06:18 → INTOOBSV 06:18 → 4A 09:56
PROVIDERS: ADMIT Internal Medicine Geriatric Medicine; ATTEND Student in an Organized Health Care Education/Training Program
DX: R51.9 Headache, unspecified (principal); M10.9 Gout, unspecified; I10 Essential (primary) hypertension; I48.91 Unspecified atrial fibrillation; J45.909 Unspecified asthma, uncomplicated; E78.5 Hyperlipidemia, unspecified; R00.2 Palpitations; Z90.49 Acquired absence of other specified parts of digestive tract; Z79.899 Other long term (current) drug therapy; Z98.890 Other specified postprocedural states
CPT/HCPCS: 36415; 70450; 70551; 71046; 80053; 83036; 84484; 84702; 85025; 85610; 85730; 93005; 93306; 99285; G0378; J2405

== ENCOUNTER 2021-09-17 13:56 | Emergency (ER) | payer OTHER ==
--- NOTE | 2021-09-17 18:29 | Event Note ---
ED Screening Note Date of service: 09/17/21 Time: 18:27 ED Screening Note: 50-year-old female with a past medical history of hypertension presents to the emergency department for evaluation of difficulty walking, blurred vision, and dizziness that started yesterday. She denies any injury, chest pain, and shortness of breath and states that she had the same type thing happen to her about 1 year ago but did not find anything. She also complains of headache. This initial assessment/diagnostic orders/clinical plan/treatment(s) is/are subject to change based on patients health status, clinical progression and re- assessment by fellow clinical providers in the ED. Further treatment and workup at subsequent clinical providers discretion. Patient/guardian urged not to elope from the ED as their condition may be serious if not clinically assessed and managed. Initial orders include: CBC, CMP, troponin, EKG, CT scan of the head, UA
--- NOTE | 2021-09-17 19:10 | XRay Report ---
CHEST 2 VIEWS INDICATION / CLINICAL INFORMATION: chest pain STUDY TIME: 1901 COMPARISON: 05/10/2021 FINDINGS: SUPPORT DEVICES: None. HEART / MEDIASTINUM: No significant abnormality. LUNGS / PLEURA: No significant acute pulmonary or pleural abnormality. No pneumothorax. ADDITIONAL FINDINGS: No significant additional findings. Signer Name: Celio Guerra MD Signed: 09/17/2021 7:06 PM Workstation Name: [id number]
--- NOTE | 2021-09-17 19:43 | Cat Scan Report ---
NONENHANCED CT SCAN OF THE HEAD: INDICATION / CLINICAL INFORMATION: 50 years Female; dizziness, gait alteration. TECHNIQUE: Routine CT head without contrast. All CT scans at this location are performed using CT dos e reduction for ALARA by means of automated exposure control. COMPARISON: CT scan of the head and MRI scan of the brain from 05/10/2021 FINDINGS: BRAIN / INTRACRANIAL CONTENTS: No acute hemorrhage, mass effect, midline shift, hydrocephalus, or acu te, large territorial infarct. No chronic infarct or focal atrophy. Normal brain volume and ventricul ar/sulcal size for age. No significant white matter abnormality. CRANIOCERVICAL JUNCTION: No significant abnormality. ORBITS: No significant abnormality of visualized orbits. SINUSES / MASTOIDS: No significant abnormality of the visualized paranasal sinuses or mastoid air wade ls. ADDITIONAL FINDINGS: None. IMPRESSION: No focal mass, hemorrhage, hydrocephalus, or acute, large territorial infarct. CT remains unchanged Signer Name: Cheikh Hoffman MD Signed: 09/17/2021 7:38 PM Workstation Name: [email or web address]
[2021-09-17 20:02] LABS: Hematocrit 41.1 % (30.3-42.9); Mean Corpuscular HGB Conc 32 % (30-34); Mean Corpuscular Volume 78 fl (79-97); Platelet Count 277 K/mm3 (140-440); Red Blood Count 5.25 M/mm3 (3.65-5.03); Red Cell Distribution Width 18.2 % (13.2-15.2)
[2021-09-17 20:19] LABS: Alanine Aminotransferase 21 units/L (7-56); Albumin 4.6 g/dL (3.9-5); Blood Urea Nitrogen 16 mg/dL (7-17); Calcium 9.6 mg/dL (8.4-10.2); Hemolysis Index 4
[2021-09-17 20:32] LABS: BUN/Creatinine Ratio 32
[2021-09-17 22:57] LABS: Bilirubin,Urine NEG (Negative); Color,Urine Straw (Yellow)
[2021-09-17] MEDS ORDERED: SODIUM CHLORIDE 0.9% 1000 ML 1,000 ML IV ONE (22:57)
[2021-09-17 22:58] LABS: Blood,Urine Trace (Negative); HCG Qualitative,Urine Negative (Negative); Protein,Urine <15 mg/dL mg/dL (Negative); Urobilinogen,Urine < 2.0 mg/dL (<2.0)
[2021-09-17 23:40] LABS: Basophils # (Auto) 0.1 K/mm3 (0.0-0.1); Basophils % (Auto) 1.5 % (0.0-1.8); Eosinophils # (Auto) 0.1 K/mm3 (0.0-0.4); Eosinophils % (Auto) 1.1 % (0.0-4.3); Hematocrit 40.9 % (30.3-42.9); Hemoglobin 12.9 gm/dl (10.1-14.3); Lymphocytes # (Auto) 1.9 K/mm3 (1.2-5.4); Mean Corpuscular HGB Conc 32 % (30-34); Mean Corpuscular Volume 78 fl (79-97); Monocytes # (Auto) 0.5 K/mm3 (0.0-0.8); Monocytes % (Auto) 6.5 % (0.0-7.3); Platelet Count 276 K/mm3 (140-440); Red Blood Count 5.25 M/mm3 (3.65-5.03); Red Cell Distribution Width 17.7 % (13.2-15.2)
[2021-09-17 23:48] LABS: Amphetamine Screen,Urine PRESUMPTIVE NEGATIVE; Benzodiazepines Screen,Urine PRESUMPTIVE NEGATIVE; Cannabinoid Screen,Urine PRESUMPTIVE NEGATIVE; Cocaine Screen,Urine PRESUMPTIVE NEGATIVE; Methadone Screen,Urine PRESUMPTIVE NEGATIVE; Opiate Screen,Urine PRESUMPTIVE NEGATIVE
[2021-09-17 23:52] LABS: INR 0.9 (0.87-1.13)
[2021-09-18 00:07] LABS: Creatine Kinase MB 1.3 ng/mL (0.0-4.0)
--- NOTE | 2021-09-18 00:36 | Emergency Department Report ---
ED Dizziness HPI - General Chief Complaint: Dizziness Stated Complaint: UNK Time Seen by Provider: 09/17/21 22:46 Source: patient Mode of arrival: Ambulatory Limitations: Language Barrier - History of Present Illness Initial Comments: pt is poor historian , pt she stated that for some time now she has been feeling that there is something in her head , like inflammation and she feels dizzy sometimes and in the morning she cannot walk and feel poor coordination, had it for some time and went to other hospital for the smae and they sent her to ENT but ENT told her there is no abnormality , symtoms are not every day MD Complaint: dizziness, lightheadedness -: week(s) Timing: unsure Description: off-balance History of Same: Yes History of Trauma: No Severity: mild Improves With: nothing Worsens With: nothing Associated Symptoms: denies: denies other symptoms, ataxia, cough - Related Data Home Medications Medication Instructions Recorded Confirmed Last Taken Ramipril 10 mg PO QDAY 01/09/21 05/10/21 01/25/21 Previous Rx's Medication Instructions Recorded Last Taken Type Antacid [Alum-Mag Hydrox-Simeth 30 ml PO Q4H PRN 10 Days #1800 ml 05/10/21 Unknown Rx [id number]/5Ml] Allergies Allergy/AdvReac Type Severity Reaction Status Date / Time iodine Allergy Anaphylaxis Verified 11/23/20 15:14 methocarbamol Allergy Hives Verified 05/10/21 01:26 metoclopramide Allergy Hives Verified 05/10/21 01:26 Penicillins Allergy Anaphylaxis Verified 01/25/21 12:47 Sulfa (Sulfonamide Allergy Anaphylaxis Verified 11/23/20 15:14 Antibiotics) iodoquinol [From Yodoxin] AdvReac Unknown Verified 11/23/20 15:14 tetracycline AdvReac Unknown Verified 11/23/20 15:14 yodo Allergy Hives Uncoded 05/10/21 01:26 ED Review of Systems ROS: Stated complaint: UNK Other details as noted in HPI Constitutional: denies: chills, fever Eyes: denies: eye pain, eye discharge, vision change ENT: denies: ear pain, throat pain Respiratory: denies: cough, shortness of breath, wheezing Cardiovascular: denies: chest pain, palpitations Endocrine: no symptoms reported Gastrointestinal: denies: abdominal pain, nausea, diarrhea Genitourinary: denies: urgency, dysuria, discharge Musculoskeletal: denies: back pain, joint swelling, arthralgia Skin: denies: rash, lesions Neurological: denies: headache, weakness, paresthesias Psychiatric: denies: anxiety, depression Hematological/Lymphatic: denies: easy bleeding, easy bruising ED Past Medical Hx - Past Medical History Hx Hypertension: Yes Hx Congestive Heart Failure: No Hx Diabetes: No Hx Asthma: Yes Hx COPD: No Additional medical history: Atrial fib and hyperlipidemia - Surgical History Hx Appendectomy: Yes (PATIENT AT AGE 16) Additional Surgical History: B/L Hand - Social History Smoking Status: Never Smoker - Medications Home Medications: Home Medications Medication Instructions Recorded Confirmed Last Taken Type Ramipril 10 mg PO QDAY 01/09/21 05/10/21 01/25/21 History Antacid [Alum-Mag Hydrox-Simeth 30 ml PO Q4H PRN 10 Days #1800 ml 05/10/21 Unknown Rx [phone]/5Ml] ED Physical Exam - General Limitations: Language Barrier General appearance: alert, in no apparent distress - Head Head exam: Present: atraumatic, normocephalic - Eye Eye exam: Present: normal appearance - ENT ENT exam: Present: mucous membranes moist - Neck Neck exam: Present: normal inspection - Respiratory Respiratory exam: Present: normal lung sounds bilaterally. Absent: respiratory distress - Cardiovascular Cardiovascular Exam: Present: regular rate, normal rhythm. Absent: systolic murmur, diastolic murmur, rubs, gallop - GI/Abdominal GI/Abdominal exam: Present: soft, normal bowel sounds - Extremities Exam Extremities exam: Present: normal inspection - Back Exam Back exam: Present: normal inspection - Neurological Exam Neurological exam: Present: alert, oriented X3 - Psychiatric Psychiatric exam: Present: normal affect, normal mood - Skin Skin exam: Present: warm, dry, intact, normal color. Absent: rash ED Course Vital Signs 09/17/21 14:28 Temperature 98.8 F Pulse Rate 110 H Respiratory 16 Rate Blood Pressure 138/58 [Left] O2 Sat by Pulse 99 Oximetry ED Medical Decision Making - Lab Data Result diagrams: 09/17/21 23:26 09/17/21 19:38 - Radiology Data Radiology results: report reviewed, image reviewed - Medical Decision Making work up negative , head ct normal , vss nuro exam is normal pt refusing IV fluids because she allergic to Water ??? , i suspect some psycho somatic symtpoms, will refer to neurology for further work up Critical care attestation.: If time is entered above; I have spent that time in minutes in the direct care of this critically ill patient, excluding procedure time. ED Disposition Clinical Impression: Dizziness, Unsteady gait Disposition: HOME / SELF CARE / HOMELESS Is pt being admited?: No Does the pt Need Aspirin: No Condition: Stable Instructions: Dizziness Referrals: THELMA PARIS MD [Primary Care Provider] - 3-5 Days MARGOT PEARSON DO [Staff Physician] - 3-5 Days
[2021-09-18 00:49] VITALS: BP 134/72
--- NOTE | 2021-09-18 11:26 | Electrocardiograph Report ---
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
== END 2021-09-18 00:54 | disposition home or self-care (01) ==
LOC: ED 13:56
DX: R42 Dizziness and giddiness (principal); Z91.041 Radiographic dye allergy status; Z88.2 Allergy status to sulfonamides; Z88.1 Allergy status to other antibiotic agents; Z88.0 Allergy status to penicillin; I10 Essential (primary) hypertension; J45.909 Unspecified asthma, uncomplicated; Z79.899 Other long term (current) drug therapy
CPT/HCPCS: 70450; 71046; 80053; 80307; 81001; 81025; 82550; 82553; 85025; 85027; 85610; 93005; 96360; 99284; J7030; 80320; Q0162; G0480

== ENCOUNTER 2022-01-01 12:40 | Emergency (ER) | payer OTHER ==
[2022-01-01 14:46] VITALS: BP 136/78
--- NOTE | 2022-01-01 15:13 | XRay Report ---
CHEST 2 VIEWS INDICATION / CLINICAL INFORMATION: chest pain. COMPARISON: 09/17/2021 FINDINGS: SUPPORT DEVICES: None. HEART / MEDIASTINUM: No significant abnormality. LUNGS / PLEURA: No significant pulmonary or pleural abnormality. No pneumothorax. ADDITIONAL FINDINGS: No significant additional findings. IMPRESSION: 1. No acute findings. Signer Name: Gilbert Schwartz DO Signed: 01/01/2022 3:09 PM Workstation Name: [email or web address]
[2022-01-01 15:36] LABS: Hematocrit 40.1 % (30.3-42.9); Hemoglobin 12.8 gm/dl (10.1-14.3); Mean Corpuscular HGB Conc 32 % (30-34); Mean Corpuscular Volume 80 fl (79-97); Platelet Count 298 K/mm3 (140-440); Red Cell Distribution Width 13.5 % (13.2-15.2)
[2022-01-01 16:00] LABS: Alanine Aminotransferase 22 units/L (7-56); Albumin 5.1 g/dL (3.9-5); Blood Urea Nitrogen 14 mg/dL (7-17); Hemolysis Index 1
[2022-01-01 16:19] LABS: BUN/Creatinine Ratio 23
--- NOTE | 2022-01-02 17:51 | Electrocardiograph Report ---
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
== END 2022-01-01 19:20 | disposition left against medical advice (07) ==
LOC: ED 12:40
DX: R42 Dizziness and giddiness (principal); Z53.21 Procedure and treatment not carried out due to patient leaving prior to being seen by health care provider
CPT/HCPCS: 36415; 71046; 80053; 84484; 85027; 93005